=== PATIENT | female | born 1985 | race Caucasian/White ===

== ENCOUNTER 2017-06-09 15:41 | Emergency (ER) | payer MEDICAID, OTHER ==
[2017-06-09 16:39] VITALS: BMI 19.5
[2017-06-09 16:42] VITALS: RESP 18
[2017-06-09] MEDS ORDERED: Sodium Chloride 0.9% 1,000 ML IV STA (18:40)
[2017-06-09 18:53] LABS: BASO # 0.02 K/mm3 (0.0-2.0); BASO % 0.2 % (0.0-3.0); EOS % 0.3 % (1.5-5.0); GRAN # 6.44 (1.4-6.5); GRAN % 69.9 % (50.0-68.0); HEMOGLOBIN 12.5 g/dL (12.0-16.0); LYMPH % 22.1 % (22.0-35.0); MEAN CORPUSCULAR HEMOGLOBIN 29.5 pg (25.0-35.0); MEAN CORPUSCULAR HGB CONC 32.4 g/dl (31.0-37.0); MEAN PLATELET VOLUME 8.7 fl (7.0-11.0); MONO # 0.7 (0.1-0.6); MONO % 7.5 % (1.0-6.0); RBC 4.24 10^6/uL (3.5-6.1); RED CELL DISTRIBUTION WIDTH 15.2 % (11.5-14.5); WHITE BLOOD COUNT 9.2 10^3/ul (4.5-11.0)
[2017-06-09 18:59] LABS: URINE BILIRUBIN NEGATIVE (NEGATIVE); URINE BLOOD TRACE-INTACT (NEGATIVE); URINE GLUCOSE (UA) NEGATIVE (NEGATIVE); URINE LEUKOCYTE ESTERASE SMALL Leu/uL (NEGATIVE); URINE NITRATE NEGATIVE (NEGATIVE); URINE PROTEIN NEGATIVE mg/dL (<30 mg/dL); URINE UROBILINOGEN 0.2 E.U./dL (<1 E.U./dL)
[2017-06-09 19:02] LABS: URINE APPEARANCE CLOUDY (CLEAR); URINE COLOR YELLOW (YELLOW)
[2017-06-09 19:05] LABS: ALB/GLOB RATIO 1.2 (1.1-1.8); ALBUMIN 4.4 g/dL (3.0-4.8); ALT/SGPT 51 U/L (7-56); AMYLASE 113 U/L (35-125); AST/SGOT 31 U/L (14-36); BLOOD UREA NITROGEN 10 mg/dL (7-21); CALCIUM 9.9 mg/dL (8.4-10.5); GFR AFRICAN-AMERICAN > 60; GFR NON-AFRICAN AMERICAN > 60; LIPASE 23 U/L (23-300)
[2017-06-09 19:16] LABS: URINE BACTERIA LARGE (NEG); URINE RBC 0 - 2 /hpf (0-2)
--- NOTE | 2017-06-09 20:04 | CT ---
EXAM: CT Head Without Intravenous Contrast EXAM DATE/TIME: 06/09/2017 6:40 PM CLINICAL HISTORY: The patient age is 31 years old and is female; Pain; Headache; Headache not specified; Additional info: Headache/dizziness Facility exam id and description: Ct heads head w/o contrast TECHNIQUE: Axial computed tomography images of the head/brain without intravenous contrast. All CT scans at this facility use one or more dose reduction techniques, viz.: automated exposure control; ma/kV adjustment per patient size (including targeted exams where dose is matched to indication; i.e. head); or iterative reconstruction technique. Coronal and sagittal reformatted images were created and reviewed. COMPARISON: No relevant prior studies available. FINDINGS: Brain: The white-de la cruz differentiation is preserved demonstrating no acute territorial type infarct. No acute intracranial hemorrhage is seen. Midline shift: There is no midline shift. Ventricles: No ventriculomegaly. Bones/joints: The calvarium demonstrates no evidence for a depressed fracture. Soft tissues: No acute abnormality. Sinuses: Unremarkable as visualized. No acute sinusitis. Mastoid air cells: No mastoid effusion. IMPRESSION: 1. No acute intracranial abnormality.
--- NOTE | 2017-06-09 21:45 | ED PDOC ---
Arrival/HPI - General Historian: Patient - History of Present Illness Time/Duration: Other (3 days) Quality: Throbbing Severity Level: 5 - General Chief Complaint: GI Problem Time Seen by Provider: 06/09/17 18:02 - History of Present Illness Narrative History of Present Illness (Text): 06/09/17 21:43 31-year-old female presents today with dizziness that started 3 days ago. Patient states she ate a dish of seafood and thought that the dizziness was related to that. Patient states the next day she started to feel nauseous and began vomiting. Patient states she developed a headache. patient presents today with nausea and a frontal headache. She denies blurred vision. Patient states she feels dizzy as if the room is spinning. Patient denies chest pain or shortness of breath. She denies abdominal pain. She is complaining of foul- smelling urine and urinary frequency. Patient states she took ibuprofen for pain at home. No other complaints. (Juhi Patel) Past Medical History - Provider Review Nursing Documentation Reviewed: Yes - Travel History Have you recently traveled outside [place] w/in the past 3 mons?: No - Past History Past History: No Previous - Infectious Disease Hx of Infectious Diseases: None - Tetanus Immunization Tetanus Immunization: Unknown - Cardiac Hx Cardiac Disorders: No Hx Hypertension: No - Pulmonary Hx Tuberculosis: No - Neurological HX Cerebrovascular Accident: No Hx Seizures: No - Hematological/Oncological Hx Cancer: No - Musculoskeletal/Rheumatological Hx Falls: No - Gastrointestinal Hx Gastritis: Yes Other/Comment: gastritis - Genitourinary/Gynecological Hx Sexually Transmitted Diseases: No - Psychiatric Hx Depression: No Hx Emotional Abuse: No Hx Physical Abuse: No Hx Substance Use: No - Surgical History Hx Appendectomy: Yes - Anesthesia Hx Anesthesia: Yes Hx Anesthesia Reactions: No - Suicidal Assessment Feels Threatened In Home Enviroment: No Family/Social History - Physician Review Nursing Documentation Reviewed: Yes Family/Social History: Unknown Family HX Smoking Status: Never Smoked Hx Alcohol Use: No Hx Substance Use: No Hx Substance Use Treatment: No Allergies/Home Meds Allergies/Adverse Reactions: Allergies No Known Allergies Allergy (Verified 04/04/16 19:14) Review of Systems - Review of Systems Constitutional: absent: Fatigue, Fevers Eyes: absent: Vision Changes, Photophobia, Eye Pain ENT: absent: Sore Throat, Sinus Congestion Respiratory: absent: SOB, Cough Cardiovascular: absent: Chest Pain, Palpitations Gastrointestinal: Nausea, Vomiting. absent: Abdominal Pain, Diarrhea Genitourinary Female: Frequency, Other (foul smelling urine). absent: Vaginal Bleeding, Vaginal Discharge Musculoskeletal: Back Pain. absent: Arthralgias, Neck Pain Skin: absent: Rash, Pruritis Neurological: Headache, Dizziness Psychiatric: Anxiety, Depression Physical Exam Vital Signs Reviewed: Yes Temperature: Afebrile Blood Pressure: Normal Pulse: Regular Respiratory Rate: Normal Appearance: Positive for: Well-Appearing, Non-Toxic, Comfortable Pain Distress: None Mental Status: Positive for: Alert and Oriented X 3 - Systems Exam Head: Present: Atraumatic Pupils: Present: PERRL Extroacular Muscles: Present: EOMI Conjunctiva: Present: Normal Ears: Present: Normal Mouth: Present: Moist Mucous Membranes Pharnyx: Present: Normal Neck: Present: Normal Range of Motion, Paraspinal Tenderness (+ left sided trapezius tenderness). No: Meningeal Signs, MIDLINE TENDERNESS Respiratory/Chest: Present: Clear to Auscultation, Good Air Exchange. No: Respiratory Distress, Accessory Muscle Use Cardiovascular: Present: Regular Rate and Rhythm, Normal S1, S2. No: Murmurs Abdomen: Present: Normal Bowel Sounds. No: Tenderness, Distention, Peritoneal Signs, Rebound, Guarding Back: Present: Normal Inspection. No: Midline Tenderness, Paraspinal Tenderness Upper Extremity: Present: Normal ROM Lower Extremity: Present: Normal ROM Neurological: Present: GCS=15, Speech Normal, Motor Func Grossly Intact, Normal Sensory Function, Normal Cerebellar Funct, Gait Normal Skin: Present: Warm, Dry, Normal Color. No: Rashes Psychiatric: Present: Alert, Oriented x 3 Vital Signs Temp Pulse Resp BP Pulse Ox 06/09/17 19:39 98.0 F 81 18 102/60 98 06/09/17 16:41 98.3 F 98 H 18 109/70 100 Medical Decision Making ED Course and Treatment: 06/09/17 21:47 31yr old female with dizziness, headache, n/v x 3 days and foul smelling urine. pt given meclizine for dizziness. tylenol for headache. NS iv bolus cbc;wnl cmp; wnl ua; + leukocytes, + bacteria ct head; FINDINGS: Brain: The white-de la cruz differentiation is preserved demonstrating no acute territorial type infarct. No acute intracranial hemorrhage is seen. Midline shift: There is no midline shift. Ventricles: No ventriculomegaly. Bones/joints: The calvarium demonstrates no evidence for a depressed fracture. Soft tissues: No acute abnormality. Sinuses: Unremarkable as visualized. No acute sinusitis. Mastoid air cells: No mastoid effusion. IMPRESSION: 1. No acute intracranial abnormality. pt reassessment; pt feeling better; states dizziness has resolved. pt still c/o frontal headache. toradol given for pain. macrobid started for UTI. 06/09/17 22:32 pt reassessment; Pt feeling much better. denies any complaints. states headache and dizziness has resolved. ambulating with steady gait. i discussed results with patient in depth; advised motrin every 6 hours as needed for pain. advised macrobid twice daily x 10 days. advised increasing fluids and immediate return if symptoms worsen,persist or if new symptoms develop. Patient verbalizes understanding of discharge instructions and need for immediate followup. all aspects of this case were discussed the attending of record. impression; UTI, headache, dizziness motrin every 6 hours as needed for pain macrobid twice daily x 10 days. increase fluids Follow up with the primary care physician within the next 2 days. Return IMMEDIATELY if symptoms worsen,persist or if new concerning symptoms develop. (Juhi Patel) - Lab Interpretations Lab Results: 06/09/17 18:36 06/09/17 18:36 Lab Results 06/09/17 18:36: WBC 9.2 D, RBC 4.24, Hgb 12.5, Hct 38.6, MCV 91.0, MCH 29.5, MCHC 32.4, RDW 15.2 H, Plt Count 397, MPV 8.7, Gran % 69.9 H, Lymph % (Auto) 22.1, [place] % (Auto) 7.5 H, Eos % (Auto) 0.3 L, Baso % (Auto) 0.2, Gran # 6.44, Lymph # 2.0, [place] # 0.7 H, Eos # 0.0, Baso # 0.02 06/09/17 18:36: Sodium 143, Potassium 4.1, Chloride 105, Carbon Dioxide 29, Anion Gap 14, BUN 10, Creatinine 0.7, Est GFR ( Amer) > 60, Est GFR (Non- Af Amer) > 60, Random Glucose 101, Calcium 9.9, Total Bilirubin 0.4, AST 31, ALT 51, Alkaline Phosphatase 102, Total Protein 8.1, Albumin 4.4, Globulin 3.7, Albumin/Globulin Ratio 1.2, Amylase 113, Lipase 23 06/09/17 18:36: Urine Color Yellow, Urine Appearance Cloudy, Urine pH 7.0, Ur Specific [place] 1.010, Urine Protein Negative, Urine Glucose (UA) Negative, Urine Ketones Negative, Urine Blood Trace-intact H, Urine Nitrate Negative, Urine Bilirubin Negative, Urine Urobilinogen 0.2, Ur Leukocyte Esterase Small H , Urine RBC 0 - 2, Urine WBC 5 - 10, Ur Epithelial Cells 6 - 8, Urine Bacteria Large - RAD Interpretation Radiology Orders: 06/09/17 18:40 HEAD W/O CONTRAST [CT] Stat - Medication Orders Current Medication Orders: Discontinued Medications Acetaminophen (Tylenol 325mg Tab) 975 mg PO STAT STA Stop: 06/09/17 20:57 Last Admin: 06/09/17 21:02 Dose: 975 mg MAR Pain/Vitals Document 06/09/17 21:02 CAST (Rec: 06/09/17 21:[id number]) Pain Reassessment Is This A Pain ReAssessment? No Sleep Is patient sleeping during reassessment? No Presence of Pain Presence of Pain Yes Pain Scale Used Pain Scale Used Numeric Location Pain Location Body Radio Communications Mechanician Description Constant Intensity 8 Scale Used Numeric Pain Behavior Facial Grimacing Aggravating Factors Changing Position Alleviating Factors Medication Sodium Chloride (Sodium Chloride 0.9%) 1,000 mls @ 999 mls/hr IV .Q1H1M STA Stop: 06/09/17 19:40 Last Admin: 06/09/17 18:47 Dose: 999 mls/hr eMAR Start Stop Document 06/09/17 18:47 [email or web address] (Rec: 06/09/17 18:47 [facility] [id number]) Intravenous Solution Start Date 06/09/17 Start Time 18:47 End Date 06/09/17 Ketorolac Tromethamine (Toradol) 30 mg IVP STAT STA Stop: 06/09/17 21:39 Last Admin: 06/09/17 21:52 Dose: 30 mg MAR Pain Assessment Document 06/09/17 21:52 [facility]ST (Rec: 06/09/17 21:[id number]) Pain Reassessment Is this a pain reassessment? No Sleep Is patient sleeping during reassessment? No Presence of Pain Presence of Pain Yes Pain Scale Used Pain Scale Used Numeric Location Pain Location Body Radio Communications Mechanician Description Description Constant Intensity of Pain at present 8 Pain Behavior Facial Grimacing Aggravating Factors Changing Position Alleviating Factors/Management Position Change Techniques Alleviating Factors Medication IVP Administration Document 06/09/17 21:52 [facility] (Rec: 06/09/17 21:52 [id number]) Charges for Administration # of IVP Administrations 1 Meclizine HCl (Antivert) 25 mg PO STAT STA Stop: 06/09/17 18:42 Last Admin: 06/09/17 18:47 Dose: 25 mg Nitrofurantoin Macrocrystals (Macrobid) 100 mg PO STAT STA Stop: 06/09/17 21:39 Last Admin: 06/09/17 21:52 Dose: 100 mg Disposition/Present on Arrival - Present on Arrival Any Indicators Present on Arrival: No History of DVT/PE: No History of Uncontrolled Diabetes: No Urinary Catheter: No History of Decub. Ulcer: No History Surgical Site Infection Following: None - Disposition Have Diagnosis and Disposition been Completed?: Yes Disposition Time: 22:35 Patient Plan: Discharge - Disposition Diagnosis: Urinary tract infection, Headache, Dizziness Disposition: HOME/ ROUTINE Condition: GOOD Discharge Instructions (ExitCare): Urinary Tract Infection in Women (ED) Print Language: ROMANIAN Additional Instructions: motrin every 6 hours as needed for pain macrobid twice daily x 10 days. increase fluids Follow up with the primary care physician within the next 2 days. Return IMMEDIATELY if symptoms worsen,persist or if new concerning symptoms develop. Prescriptions: Nitrofurantoin Macrocrystals [Macrobid] 100 mg PO BID #20 cap Referrals: PCP,NO [Primary Care Provider] - Follow up with primary Lester Mcknight DO [Staff Provider] - Follow up with primary Js Ferguson MD [Staff Provider] - Follow up with primary [facility] at [facility] [Outside] - Follow up with primary Forms: [employer] (Maldivian)
[2017-06-09 22:45] VITALS: BP 100/68
[2017-06-09 22:46] VITALS: PULSE 81; TEMP 98.3; O2SAT 99
== END 2017-06-09 22:46 | disposition home or self-care (01) ==
LOC: ED 15:41
DX: N39.0 Urinary tract infection, site not specified (principal); R51 Headache; R42 Dizziness and giddiness
CPT/HCPCS: 70450; 80053; 81001; 82150; 83690; 85025; 87086; 96374; 99284; J1885; J7040

== ENCOUNTER 2017-10-25 16:53 | Emergency (ER) | payer MEDICAID, OTHER ==
[2017-10-25 18:15] VITALS: RESP 18; TEMP 98; BMI 24.2
[2017-10-25] MEDS ORDERED: Sodium Chloride 0.9% 1,000 ML IV STA (18:16)
[2017-10-25 18:42] LABS: URINE BILIRUBIN NEGATIVE (NEGATIVE); URINE BLOOD LARGE (NEGATIVE); URINE GLUCOSE (UA) NEGATIVE (NEGATIVE); URINE LEUKOCYTE ESTERASE TRACE Leu/uL (NEGATIVE); URINE PROTEIN TRACE mg/dL (<30 mg/dL)
[2017-10-25 18:43] LABS: URINE APPEARANCE SLIGHT-CLOUDY (CLEAR); URINE COLOR YELLOW (YELLOW)
[2017-10-25 19:00] LABS: BASO # 0.02 K/mm3 (0.0-2.0); BASO % 0.4 % (0.0-3.0); EOS % 0.7 % (1.5-5.0); GRAN # 3.06 (1.4-6.5); GRAN % 54.1 % (50.0-68.0); HEMOGLOBIN 10.8 g/dL (12.0-16.0); LYMPH # 2.1 (1.2-3.4); LYMPH % 37.2 % (22.0-35.0); MEAN CELL VOLUME 87.8 fl (80.0-105.0); MEAN CORPUSCULAR HEMOGLOBIN 28.7 pg (25.0-35.0); MEAN CORPUSCULAR HGB CONC 32.7 g/dl (31.0-37.0); MEAN PLATELET VOLUME 8.6 fl (7.0-11.0); MONO # 0.4 (0.1-0.6); MONO % 7.6 % (1.0-6.0); RBC 3.76 10^6/uL (3.5-6.1); RED CELL DISTRIBUTION WIDTH 15.6 % (11.5-14.5); WHITE BLOOD COUNT 5.7 10^3/ul (4.5-11.0)
[2017-10-25 19:03] LABS: URINE BACTERIA MANY (NEG)
[2017-10-25 19:20] LABS: ALB/GLOB RATIO 1.2 (1.1-1.8); ALBUMIN 3.7 g/dL (3.0-4.8); ALT/SGPT 37 U/L (7-56); AST/SGOT 35 U/L (14-36); BLOOD UREA NITROGEN 11 mg/dL (7-21); CALCIUM 8.5 mg/dL (8.4-10.5); GFR AFRICAN-AMERICAN > 60; GFR NON-AFRICAN AMERICAN > 60; LIPASE 23 U/L (23-300)
--- NOTE | 2017-10-25 19:23 | ED PDOC ---
Arrival/HPI - General Chief Complaint: Abdominal Pain Time Seen by Provider: 10/25/17 18:16 Historian: Patient - History of Present Illness Narrative History of Present Illness (Text): 10/25/17 21:01 32yr old female presents today with right sided abdominal pain that started yesterday. pt states the pain is constant. pt denies fever/chills. pt c/o nausea. no vomiting. pt c/o back pain. no dizziness or weakness. pt c/o urinary frequency. pt states she is currently menstrating. no cp or sob. no other complaints. Past Medical History - Provider Review Nursing Documentation Reviewed: Yes - Travel History Have you recently traveled outside [place] w/in the past 3 mons?: No - Past History Past History: No Previous - Infectious Disease Hx of Infectious Diseases: None - Tetanus Immunization Tetanus Immunization: Unknown - Cardiac Hx Cardiac Disorders: No - Pulmonary Hx Respiratory Disorders: No - Neurological Hx Neurological Disorder: No - HEENT Hx HEENT Disorder: No - Renal Hx Renal Disorder: No - Endocrine/Metabolic Hx Endocrine Disorders: No - Hematological/Oncological Hx Blood Disorders: No - Integumentary Hx Dermatological Disorder: No - Musculoskeletal/Rheumatological Hx Musculoskeletal Disorders: No - Gastrointestinal Hx Gastritis: Yes Other/Comment: gastritis - Genitourinary/Gynecological Hx Genitourinary Disorders: No - Psychiatric Hx Psychophysiologic Disorder: No Hx Substance Use: No - Surgical History Hx Appendectomy: Yes - Anesthesia Hx Anesthesia: Yes Hx Anesthesia Reactions: No - Suicidal Assessment Feels Threatened In Home Enviroment: No Family/Social History - Physician Review Nursing Documentation Reviewed: Yes Family/Social History: Unknown Family HX Smoking Status: Never Smoked Hx Alcohol Use: No Hx Substance Use: No Hx Substance Use Treatment: No Allergies/Home Meds Allergies/Adverse Reactions: Allergies No Known Allergies Allergy (Verified 10/25/17 18:09) Review of Systems - Review of Systems Constitutional: absent: Fatigue, Fevers Respiratory: absent: SOB, Cough Cardiovascular: absent: Chest Pain, Palpitations Gastrointestinal: Abdominal Pain, Diarrhea, Nausea. absent: Constipation, Vomiting Genitourinary Female: Frequency. absent: Dysuria, Hematuria, Vaginal Discharge Musculoskeletal: Back Pain. absent: Arthralgias, Neck Pain Skin: absent: Rash, Pruritis Neurological: absent: Headache, Dizziness Psychiatric: absent: Anxiety, Depression, Suicidal Ideation Physical Exam Vital Signs Reviewed: Yes Vital Signs Temp Pulse Resp BP Pulse Ox 10/25/17 23:30 80 18 127/74 100 10/25/17 22:00 76 18 123/71 98 10/25/17 20:00 82 18 125/70 100 10/25/17 18:12 98 F 98 H 18 122/73 99 Temperature: Afebrile Blood Pressure: Normal Pulse: Regular Respiratory Rate: Normal Appearance: Positive for: Well-Appearing, Non-Toxic, Comfortable Pain Distress: None Mental Status: Positive for: Alert and Oriented X 3 - Systems Exam Head: Present: Atraumatic Mouth: Present: Moist Mucous Membranes Neck: Present: Normal Range of Motion Respiratory/Chest: Present: Clear to Auscultation, Good Air Exchange. No: Respiratory Distress, Accessory Muscle Use Cardiovascular: Present: Regular Rate and Rhythm, Normal S1, S2. No: Murmurs Abdomen: Present: Tenderness (+ ruq and rlq and suprapubic tenderness). No: Distention, Peritoneal Signs Rectal: Present: Normal Rectal Tone. No: Occult Blood, Rectal Tenderness, Gross Blood, Melena, Hemorrhoids, Fissures Back: Present: Normal Inspection. No: CVA Tenderness, Midline Tenderness, Paraspinal Tenderness Upper Extremity: Present: Normal ROM Lower Extremity: Present: Normal ROM Neurological: Present: GCS=15, Speech Normal Skin: Present: Warm, Dry, Normal Color. No: Rashes Psychiatric: Present: Alert, Oriented x 3 Medical Decision Making ED Course and Treatment: 10/25/17 21:16 Patient is nontoxic well appearing with stable vital signs presenting with abdominal pain, nausea since yesterday CBC wnl CMP wnl Lipase wnl Urinalysis + blood, + leukocytes CAT scan:FINDINGS: LIMITATIONS: Mild streak/motion artifact. LUNG BASES: No significant abnormality seen. ABDOMEN: LIVER: Area of low density in the liver, abutting the falciform ligament, most compatible with focal fatty infiltration. GALLBLADDER AND BILE DUCTS: No CT evidence of acute cholecystitis. No evidence of significant biliary ductal dilatation. PANCREAS: No CT evidence of acute pancreatitis. SPLEEN: No acute abnormality of the spleen identified. ADRENALS: No acute abnormality of the adrenal glands identified. KIDNEYS AND URETERS: No acute abnormality of the kidneys identified. No evidence of significant hydrouereteronephrosis. STOMACH AND BOWEL:No acute abnormality of the stomach, small bowel or colon identified. No evidence of bowel obstruction. No evidence of diverticulitis. No evidence of diffuse colitis/pancolitis. PELVIS: APPENDIX: Normal appendix is not seen, however, there are no significant inflammatory changes visualized in the expected location of the appendix to suggest appendicitis. Recommend clinical correlation. BLADDER: No acute abnormality of the bladder identified. REPRODUCTIVE: Abnormal stranding of the fat in the anterior pelvis, suspicious for inflammation. This partially abuts the adnexae bilaterally, and could be secondary to pelvic inflammatory disease. There is a small amount of fluid in the adnexal regions bilaterally. No acute abnormality of the uterus identified. No evidence of large cystic adnexal masses. ABDOMEN and PELVIS: INTRAPERITONEAL SPACE: See above. No evidence of free intraperitoneal air. BONES/JOINTS: No acute fractures or other acute bony abnormality noted. SOFT TISSUES: No acute abnormality of the visualized soft tissues is seen. VASCULATURE: No evidence of abdominal aortic aneurysm. No evidence of periaortic hemorrhage. LYMPH NODES: No evidence of diffuse lymphadenopathy. IMPRESSION: - Findings suspicious for inflammation in the anterior pelvis. This could be secondary to pelvic inflammatory disease. There is no evidence of large cystic adnexal masses. - Otherwise, no evidence of significant acute process. Appendix is not seen, however. - See above for remaining findings. Patient reassessment:pt is non toxic well appearing; no distress. PID concern on ct of abd/pelvis; will treat with rocephin 250mg IM, and d/c home doxycycline 100mg bid and flagyl 500mg bid x 14 days. Discussed all results with patient in depth; stressed the importance of f/u with [facility] within the next 2 days. advised immediate return if symptoms worsen, persist or if new symptoms develop. Patient verbalizes understanding of discharge instructions and need for immediate followup. Patient seen and Evaluated by Dr. montelongo Impression: Abdominal pain, PID, UTI Motrin every 6 hours as needed for pain doxycycline; twice daily x 14 days Flagyl one tablet twice daily x14 days Follow up with the [facility] within the next 2 days. Follow up with primary care physician within the next 2 days Return immediately if symptoms worsen persist or if new symptoms develop: High fevers, increasing pain, vomiting, diarrhea or any other concerning symptoms develop - Lab Interpretations Lab Results: 10/25/17 18:53 10/25/17 18:53 Lab Results 10/25/17 18:53: Beta HCG, Quant < 2.39 10/25/17 18:53: WBC 5.7 D, RBC 3.76, Hgb 10.8 L, Hct 33.0 L, MCV 87.8 D, MCH 28.7, MCHC 32.7, RDW 15.6 H, Plt Count 310, MPV 8.6, Gran % 54.1, Lymph % (Auto ) 37.2 H, [place] % (Auto) 7.6 H, Eos % (Auto) 0.7 L, Baso % (Auto) 0.4, Gran # 3.06, Lymph # (Auto) 2.1, [place] # (Auto) 0.4, Eos # (Auto) 0.0, Baso # (Auto) 0.02 10/25/17 18:53: Sodium 148, Potassium 3.7, Chloride 111 H, Carbon Dioxide 25, Anion Gap 16, BUN 11, Creatinine 0.7, Est GFR ( Amer) > 60, Est GFR (Non- Af Amer) > 60, Random Glucose 118 H, Calcium 8.5, Total Bilirubin 0.4, AST 35, ALT 37, Alkaline Phosphatase 64, Total Protein 6.9, Albumin 3.7, Globulin 3.2, Albumin/Globulin Ratio 1.2, Lipase 23 10/25/17 18:31: Urine Color Yellow, Urine Appearance Slight-cloudy, Urine pH 6.0 , Ur Specific [place] 1.025, Urine Protein Trace H, Urine Glucose (UA) Negative , Urine Ketones Trace H, Urine Blood Large H, Urine Nitrate Positive H, Urine Bilirubin Negative, Urine Urobilinogen 1.0 H, Ur Leukocyte Esterase Trace H, Urine RBC 10 - 15, Urine WBC 2 - 5, Ur Epithelial Cells 10 - 12, Urine Bacteria Many - RAD Interpretation Radiology Orders: 10/25/17 19:38 ABD & PELVIS IV CONTRAST ONLY [CT] Stat - Medication Orders Current Medication Orders: Discontinued Medications Ceftriaxone Sodium (Rocephin) 250 mg IM STAT STA PRN Reason: Protocol Stop: 10/25/17 22:20 Last Admin: 10/25/17 22:55 Dose: 250 mg IM Administration Charges Document 10/25/17 22:55 [facility] (Rec: 10/25/17 22:55 [facility] [id number]) Injection Site MAR Injection Site Left Gluteus [place] Charges for Administration # of IM Administrations 1 Doxycycline Hyclate (Doryx) 100 mg PO STAT STA PRN Reason: Protocol Stop: 10/25/17 22:20 Last Admin: 10/25/17 22:53 Dose: 100 mg Famotidine (Pepcid) 20 mg IVP STAT STA Stop: 10/25/17 18:17 Last Admin: 10/25/17 18:51 Dose: 20 mg IVP Administration Document 10/25/17 18:51 [facility] (Rec: 10/25/17 18:51 [facility] [id number]) Charges for Administration # of IVP Administrations 1 Sodium Chloride (Sodium Chloride 0.9%) 1,000 mls @ 999 mls/hr IV .Q1H1M STA Stop: 10/25/17 19:16 Last Admin: 10/25/17 18:51 Dose: 999 mls/hr eMAR Start Stop Document 10/25/17 18:51 [facility] (Rec: 10/25/17 18:51 [facility] [id number]) Intravenous Solution Start Date 10/25/17 Start Time 18:51 End Date 10/25/17 End time 19:52 Total Infusion Time 61 Ketorolac Tromethamine (Toradol) 30 mg IVP STAT STA Stop: 10/25/17 19:40 Last Admin: 10/25/17 20:22 Dose: 30 mg MAR Pain Assessment Document 10/25/17 20:22 [facility] (Rec: 10/25/17 20:23 [facility] [id number]) Pain Reassessment Is this a pain reassessment? No Sleep Is patient sleeping during reassessment? No Presence of Pain Presence of Pain Yes Pain Scale Used Pain Scale Used Numeric Location Left, Right or Bilateral Right Upper or Lower Upper Pain Location Body Site Abdomen Description Intensity of Pain at present 6 IVP Administration Document 10/25/17 20:22 [facility] (Rec: 10/25/17 20:23 [facility] [id number]) Charges for Administration # of IVP Administrations 1 Metronidazole (Flagyl) 500 mg PO STAT STA PRN Reason: Protocol Stop: 10/25/17 22:20 Last Admin: 10/25/17 22:55 Dose: 500 mg Disposition/Present on Arrival - Present on Arrival Any Indicators Present on Arrival: No History of DVT/PE: No History of Uncontrolled Diabetes: No Urinary Catheter: No History of Decub. Ulcer: No History Surgical Site Infection Following: None - Disposition Have Diagnosis and Disposition been Completed?: Yes Diagnosis: Abdominal pain, PID (pelvic inflammatory disease), Urinary tract infection Disposition: HOME/ ROUTINE Disposition Time: 22:54 Patient Plan: Discharge Condition: GOOD Discharge Instructions (ExitCare): Pelvic Inflammatory Disease, Acute Abdomen ( Belly Pain), Adult (DC) Print Language: KIS[place]ILI Additional Instructions: Motrin every 6 hours as needed for pain doxycycline; twice daily x 14 days Flagyl one tablet twice daily x14 days Follow up with the [facility] within the next 2 days. Follow up with primary care physician within the next 2 days Return immediately if symptoms worsen persist or if new symptoms develop: High fevers, increasing pain, vomiting, diarrhea or any other concerning symptoms develop Prescriptions: Doxycycline Hyclate 100 mg PO BID #28 capsule Ibuprofen [Motrin] 600 mg PO Q6H PRN #20 tab PRN Reason: pain/fever reduction metroNIDAZOLE [Flagyl] 500 mg PO BID #28 tab Referrals: [facility] at [facility] [Outside] - [facility] [[facility]] - Follow up with primary Perez Shah MD [Staff Provider] - Follow up with primary Tommie Reyes MD [Staff Provider] - Follow up with primary Forms: [employer] (Uzbek), WORK NOTE
[2017-10-25] MEDS ORDERED: Iohexol 350 MG/100 ML VIAL ONE (19:50)
--- NOTE | 2017-10-25 21:59 | CT ---
EXAM: CT Abdomen and Pelvis With Intravenous Contrast EXAM DATE/TIME: 10/25/2017 7:38 PM CLINICAL HISTORY: 32 years old, female; Pain; Abdominal pain; Acute; Additional info: Abd pain TECHNIQUE: Axial computed tomography images of the abdomen and pelvis with intravenous contrast. All CT scans at this facility use one or more dose reduction techniques, viz.: automated exposure control; ma/kV adjustment per patient size (including targeted exams where dose is matched to indication; i.e. head); or iterative reconstruction technique. Coronal and sagittal reformatted images were created and reviewed. CONTRAST: 100 mL of OMNI 350 administered intravenously. COMPARISON: Prior CT abdomen and pelvis of 2016-04-04 FINDINGS: LIMITATIONS: Mild streak/motion artifact. LUNG BASES: No significant abnormality seen. ABDOMEN: LIVER: Area of low density in the liver, abutting the falciform ligament, most compatible with focal fatty infiltration. GALLBLADDER AND BILE DUCTS: No CT evidence of acute cholecystitis. No evidence of significant biliary ductal dilatation. PANCREAS: No CT evidence of acute pancreatitis. SPLEEN: No acute abnormality of the spleen identified. ADRENALS: No acute abnormality of the adrenal glands identified. KIDNEYS AND URETERS: No acute abnormality of the kidneys identified. No evidence of significant hydrouereteronephrosis. STOMACH AND BOWEL:No acute abnormality of the stomach, small bowel or colon identified. No evidence of bowel obstruction. No evidence of diverticulitis. No evidence of diffuse colitis/pancolitis. PELVIS: APPENDIX: Normal appendix is not seen, however, there are no significant inflammatory changes visualized in the expected location of the appendix to suggest appendicitis. Recommend clinical correlation. BLADDER: No acute abnormality of the bladder identified. REPRODUCTIVE: Abnormal stranding of the fat in the anterior pelvis, suspicious for inflammation. This partially abuts the adnexae bilaterally, and could be secondary to pelvic inflammatory disease. There is a small amount of fluid in the adnexal regions bilaterally. No acute abnormality of the uterus identified. No evidence of large cystic adnexal masses. ABDOMEN and PELVIS: INTRAPERITONEAL SPACE: See above. No evidence of free intraperitoneal air. BONES/JOINTS: No acute fractures or other acute bony abnormality noted. SOFT TISSUES: No acute abnormality of the visualized soft tissues is seen. VASCULATURE: No evidence of abdominal aortic aneurysm. No evidence of periaortic hemorrhage. LYMPH NODES: No evidence of diffuse lymphadenopathy. IMPRESSION: - Findings suspicious for inflammation in the anterior pelvis. This could be secondary to pelvic inflammatory disease. There is no evidence of large cystic adnexal masses. - Otherwise, no evidence of significant acute process. Appendix is not seen, however. - See above for remaining findings.
[2017-10-25] MEDS ORDERED: cefTRIAXone (Rocephin) 250 mg Inj IM STA (22:19)
[2017-10-25 23:43] VITALS: BP 127/74; PULSE 80; O2SAT 100
== END 2017-10-25 23:30 | disposition home or self-care (01) ==
LOC: ED 16:53
DX: N39.0 Urinary tract infection, site not specified (principal); N73.9 Female pelvic inflammatory disease, unspecified; R10.9 Unspecified abdominal pain
CPT/HCPCS: 74177; 80053; 81001; 83690; 84702; 85025; 87086; 87491; 87591; 96361; 96372; 96374; 96375; 99284; J0696; J1885; J7040; Q9967

== ENCOUNTER 2017-10-28 17:59 | Inpatient (IN) | payer MEDICAID ==
--- NOTE | 2017-10-28 18:07 | ED PDOC ---
Arrival/HPI - General Time Seen by Provider: 10/28/17 18:06 Historian: Patient - History of Present Illness Narrative History of Present Illness (Text): 10/28/17 18:06 32 y/o female, pmh including UTI/PID?, nkda, return back to the ER as she has not been feeling better. Pt. stated that she has been feeling fatigue and tired , seen in the ER about 3 days ago and been on the oral antibiotics, urine culture show not sensitive to the oral antibiotic but sensitive to IV antibiotics including meropenem, no fever but she's been feeling fatigue, admits rt. flank pain, no chest pain or shortness of breath, no other medical or psychological complaints. Past Medical History - Provider Review Nursing Documentation Reviewed: Yes - Past History Past History: No Previous - Infectious Disease Hx of Infectious Diseases: None - Tetanus Immunization Tetanus Immunization: Unknown - Cardiac Hx Cardiac Disorders: No - Pulmonary Hx Respiratory Disorders: No - Neurological Hx Neurological Disorder: No - HEENT Hx HEENT Disorder: No - Renal Hx Renal Disorder: No - Endocrine/Metabolic Hx Endocrine Disorders: No - Hematological/Oncological Hx Blood Disorders: No - Integumentary Hx Dermatological Disorder: No - Musculoskeletal/Rheumatological Hx Musculoskeletal Disorders: No - Gastrointestinal Hx Gastritis: Yes Other/Comment: gastritis - Genitourinary/Gynecological Hx Genitourinary Disorders: No - Psychiatric Hx Psychophysiologic Disorder: No Hx Substance Use: No - Surgical History Hx Appendectomy: Yes - Anesthesia Hx Anesthesia: Yes Hx Anesthesia Reactions: No - Suicidal Assessment Feels Threatened In Home Enviroment: No Family/Social History - Physician Review Nursing Documentation Reviewed: Yes Family/Social History: Unknown Family HX Smoking Status: Never Smoked Hx Alcohol Use: No Hx Substance Use: No Hx Substance Use Treatment: No Allergies/Home Meds Allergies/Adverse Reactions: Allergies No Known Allergies Allergy (Verified 10/25/17 18:09) Review of Systems - Review of Systems Constitutional: Fatigue. absent: Fevers Eyes: absent: Vision Changes ENT: absent: Hearing Changes Respiratory: absent: SOB, Cough Cardiovascular: absent: Chest Pain Gastrointestinal: absent: Abdominal Pain, Nausea, Vomiting Skin: Rash. absent: Pruritis, Skin Lesions Neurological: absent: Headache, Dizziness Psychiatric: absent: Anxiety, Depression Physical Exam Vital Signs Reviewed: Yes Vital Signs Temp Pulse Pulse Resp BP Pulse Ox 05/23/18 22:10 98.9 F 82 82 18 108/71 10/28/17 18:18 98.9 F 82 18 108/71 100 Temperature: Afebrile Blood Pressure: Normal Pulse: Regular Respiratory Rate: Normal Appearance: Positive for: Well-Appearing, Non-Toxic, Comfortable Pain Distress: None Mental Status: Positive for: Alert and Oriented X 3 - Systems Exam Head: Present: Atraumatic, Normocephalic Pupils: Present: PERRL Extroacular Muscles: Present: EOMI Conjunctiva: Present: Normal Mouth: Present: Moist Mucous Membranes Neck: Present: Normal Range of Motion Respiratory/Chest: Present: Clear to Auscultation, Good Air Exchange. No: Respiratory Distress, Accessory Muscle Use Cardiovascular: Present: Regular Rate and Rhythm, Normal S1, S2. No: Murmurs Abdomen: Present: Tenderness (Rt. cva). No: Distention, Peritoneal Signs, Rebound, Guarding Back: Present: Normal Inspection. No: Midline Tenderness, Paraspinal Tenderness Upper Extremity: Present: Normal Inspection. No: Cyanosis, Edema Lower Extremity: Present: Normal Inspection. No: Edema Neurological: Present: GCS=15, CN II-XII Intact, Speech Normal, Motor Func Grossly Intact Skin: Present: Warm, Dry, Normal Color. No: Rashes Psychiatric: Present: Alert, Oriented x 3, Normal Insight, Normal Concentration Medical Decision Making ED Course and Treatment: 10/28/17 18:46 -labs/ua/urine and blood culture/vbg -Chest xray -IV Meropenem -Observe and reassess 10/28/17 20:55 -Chest xray show no active disease -Labs show no acute findings -UA show +UTI which shes failure of the outpatient treatment and the urine culture is only sensitive to the IV antibiotic. -I discussed with the patient and Dr. Walsh, both agreed to be admitted at this time as she is symptomatic with rt. flank pain -Paging the night house doctor for admission. 10/28/17 21:02 -I spoke to the medical writer and Dr. Reyna, discussed about the labs/ radiology results and treatment, agreed to admit to the hospitalist service and agreed on the admission to continue the care. -Dr. Walsh will placed the admission. - Lab Interpretations Lab Results: 10/28/17 19:10 10/28/17 19:10 Lab Results 10/28/17 19:10: Urine Color Yellow, Urine Appearance Sl cloudy, Urine pH 6.0, Ur Specific [place] 1.025, Urine Protein Trace H, Urine Glucose (UA) Negative, Urine Ketones Negative, Urine Blood Trace-lysed H, Urine Nitrate Negative, Urine Bilirubin Negative, Urine Urobilinogen 0.2, Ur Leukocyte Esterase Small H , Urine RBC 0 - 2, Urine WBC 2 - 5, Ur Epithelial Cells 10 - 12, Urine Bacteria Few, Urine HCG, Qual Negative 10/28/17 19:10: Sodium 143, Potassium 3.4 L, Chloride 108 H, Carbon Dioxide 24, Anion Gap 14, BUN 11, Creatinine 0.6 L, Est GFR ( Amer) > 60, Est GFR ( Non-Af Amer) > 60, Random Glucose 107, Calcium 9.3, Magnesium 2.0, Total Bilirubin 0.2, AST 65 H D, ALT 68 H, Alkaline Phosphatase 82, Total Protein 7.0 , Albumin 3.9, Globulin 3.2, Albumin/Globulin Ratio 1.2 10/28/17 19:10: WBC 5.3, RBC 3.77, Hgb 10.9 L, Hct 33.2 L, MCV 88.1, MCH 28.9, MCHC 32.8, RDW 15.5 H, Plt Count 321, MPV 8.7, Gran % 41.2 L, Lymph % (Auto) 44.3 H, [place] % (Auto) 12.2 H, Eos % (Auto) 1.9, Baso % (Auto) 0.4, Gran # 2.20, Lymph # (Auto) 2.4, [place] # (Auto) 0.7 H, Eos # (Auto) 0.1, Baso # (Auto) 0.02 I have reviewed the lab results: Yes - RAD Interpretation Radiology Orders: 10/28/17 18:38 CHEST PORTABLE [RAD] Stat no active disease Development Analyst: Radiologist - Medication Orders Current Medication Orders: Acetaminophen (Tylenol 325mg Tab) 650 mg PO Q6H PRN PRN Reason: Fever >100.4 F Heparin Sodium (Porcine) (Heparin) 5,000 units SC Q8 JOHN PRN Reason: Protocol Sodium Chloride (Sodium Chloride 0.9%) 1,000 mls @ 100 mls/hr IV .Q10H JOHN Last Admin: 10/29/17 13:35 Dose: 100 mls/hr eMAR Start Stop Document 10/29/17 13:35 [facility] (Rec: 10/29/17 13:36 [id number]) Intravenous Solution Start Date 10/29/17 Start Time 13:36 Meropenem (Merrem Iv 1 Gm Premix) 50 mls @ 100 mls/hr IVPB Q8 JOHN Stop: 10/29/17 14:29 Last Admin: 10/29/17 13:34 Dose: 100 mls/hr eMAR Start Stop Document 10/29/17 13:34 [facility] (Rec: 10/29/17 13:34 [id number]) Intravenous Solution Start Date 10/29/17 Start Time 13:34 End Date 10/29/17 End time 14:34 Total Infusion Time 60 Ibuprofen (Motrin Tab) 600 mg PO Q6 PRN PRN Reason: NASAL CONGESTION Last Admin: 10/28/17 23:10 Dose: 600 mg MAR Pain/Vitals Document 10/28/17 23:10 CLINICAL PHARMACOLOGIST (Rec: 10/28/17 23:10 [id number]) Location Pain Location Body Site headache Re-Assess: MAR Pain/Vitals Document 10/29/17 00:10 CLINICAL PHARMACOLOGIST (Rec: 10/29/17 05:51 [id number]) Pain Reassessment Is This A Pain ReAssessment? Yes Sleep Is patient sleeping during reassessment? Yes Lactobacillus Acidophilus (Bacid Acidophilus) 1 cap PO BID [facility] Ondansetron HCl (Zofran Inj) 4 mg IVP Q4H PRN PRN Reason: Nausea/Vomiting Discontinued Medications Meropenem (Merrem Iv 1 Gm Premix) 50 mls @ 100 mls/hr IVPB STAT JOHN PRN Reason: Protocol Last Admin: 10/28/17 19:38 Dose: 100 mls/hr eMAR Start Stop Document 10/28/17 19:38 MS (Rec: 10/28/17 19:39 [id number]) Intravenous Solution Start Date 10/28/17 Start Time 19:39 End Date 10/28/17 End time 20:09 Total Infusion Time 30 Meropenem 1,000 mg/ Sodium (Chloride) 50 mls @ 100 mls/hr IVPB Q8 JOHN PRN Reason: Protocol Stop: 10/29/17 06:29 Meropenem (Merrem Iv 1 Gm Premix) 50 mls @ 100 mls/hr IVPB Q8 JOHN Pantoprazole Sodium (Protonix Ec Tab) 40 mg PO 0600 JOHN Last Admin: 10/29/17 05:51 Dose: 40 mg Pneumococcal Polyvalent Vaccine (Pneumovax 23 Vaccine) 0.5 ml IM .ONCE ONE Stop: 10/28/17 22:22 Potassium Chloride (K-Dur 20 Meq Er Tab) 20 meq PO STAT STA Stop: 10/28/17 20:55 Last Admin: 10/28/17 22:00 Dose: 20 meq - PA / [employer] FORMER / Resident Statement / has reviewed & agrees with the documentation as recorded. Disposition/Present on Arrival - Present on Arrival Any Indicators Present on Arrival: No History of DVT/PE: No History of Uncontrolled Diabetes: No Urinary Catheter: No History of Decub. Ulcer: No History Surgical Site Infection Following: None - Disposition Have Diagnosis and Disposition been Completed?: Yes Diagnosis: Pyelonephritis, Failure of outpatient treatment, Fatigue Disposition: HOSPITALIZED Disposition Time: 18:46 Patient Plan: Admission Patient Problems: Current Active Problems Problem Status Onset Failure of outpatient treatment Acute Fatigue Acute Pyelonephritis Acute UTI due to extended-spectrum beta lactamase (ESBL) producing Escherichia coli Acute Condition: STABLE
[2017-10-28] MEDS ORDERED: Meropenem IV 1 gm in NS 50 ML IVPB SCH ×2 (18:45→22:00)
[2017-10-28 19:24] LABS: BASO # 0.02 K/mm3 (0.0-2.0); BASO % 0.4 % (0.0-3.0); EOS # 0.1 (0.0-0.7); EOS % 1.9 % (1.5-5.0); GRAN # 2.2 (1.4-6.5); GRAN % 41.2 % (50.0-68.0); HEMOGLOBIN 10.9 g/dL (12.0-16.0); LYMPH # 2.4 (1.2-3.4); LYMPH % 44.3 % (22.0-35.0); MEAN CELL VOLUME 88.1 fl (80.0-105.0); MEAN CORPUSCULAR HEMOGLOBIN 28.9 pg (25.0-35.0); MEAN CORPUSCULAR HGB CONC 32.8 g/dl (31.0-37.0); MEAN PLATELET VOLUME 8.7 fl (7.0-11.0); MONO # 0.7 (0.1-0.6); MONO % 12.2 % (1.0-6.0); RBC 3.77 10^6/uL (3.5-6.1); RED CELL DISTRIBUTION WIDTH 15.5 % (11.5-14.5); URINE APPEARANCE SL CLOUDY (CLEAR); URINE BILIRUBIN NEGATIVE (NEGATIVE); URINE BLOOD TRACE-LYSED (NEGATIVE); URINE COLOR YELLOW (YELLOW); URINE GLUCOSE (UA) NEGATIVE (NEGATIVE); URINE LEUKOCYTE ESTERASE SMALL Leu/uL (NEGATIVE); URINE PROTEIN TRACE mg/dL (<30 mg/dL); URINE UROBILINOGEN 0.2 E.U./dL (<1 E.U./dL); WHITE BLOOD COUNT 5.3 10^3/ul (4.5-11.0)
[2017-10-28 19:28] LABS: HCG,QUALITATIVE URINE NEGATIVE (NEGATIVE); URINE BACTERIA FEW (NEG); URINE RBC 0 - 2 /hpf (0-2)
[2017-10-28 19:50] LABS: ALB/GLOB RATIO 1.2 (1.1-1.8); ALBUMIN 3.9 g/dL (3.0-4.8); ALT/SGPT 68 U/L (7-56); AST/SGOT 65 U/L (14-36); BLOOD UREA NITROGEN 11 mg/dL (7-21); CALCIUM 9.3 mg/dL (8.4-10.5); GFR AFRICAN-AMERICAN > 60; GFR NON-AFRICAN AMERICAN > 60
[2017-10-28] MEDS ORDERED: Potassium Chloride 20 mEq ER Tab PO STA (20:54)
--- NOTE | 2017-10-28 21:54 | CP.PCM.HP ---
History of Present Illness - History of Present Illness History of Present Illness: Mrs. Alek Charles is a 32 year old female with a past medical history significant for GERD and recurrent UTI's who presents for failed outpatient treatment of UTI with PO Doxycycline and Flagyl. Patient speaks primarily gibraltarian and translation was provided by [employer]. Patient presented to the ED three days [employer] with complaints of RUQ/right sided flank pain for two days. She was diagnosed with UTI and sent home on the antiobiotics above. She came back to the ED tonight because her pain was not going away with antiobiotic treatment. It was confirmed that her UTI was caused by E. Coli sensitive to antibiotics that are primarily given IV. She reports that she has UTI's "all the time", most recently two months ago. She was vacationing in [facility] and was seen at the hospital there. She was diagnosed with UTI and was given antibiotics based on culture sensitivity. Patient could not recall the name of this antibiotic but reports that her symptoms were relieved however. She endorses one episode of N/V but denies fevers, chills, headache, chest pain, SOB , diarrhea, constipation, dysuria, hematuria, pyuria, vaginal discharge, skin changes/lesions, numbness/tingling/weakness of any extremity, or any new sexual partners. 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 Allergies: NKDA Home Medications: Denies LMP: 10/23/17 Present on Admission - Present on Admission Any Indicators Present on Admission: No Review of Systems - Review of Systems Review of Systems: As stated in HPI, otherwise negative Past Patient History - Infectious Disease Hx of Infectious Diseases: None - Tetanus Immunizations Tetanus Immunization: Unknown - Past Social History Smoking Status: Never Smoked - CARDIAC Hx Cardiac Disorders: No - PULMONARY Hx Respiratory Disorders: No - NEUROLOGICAL Hx Neurological Disorder: No - HEENT Hx HEENT Problems: No - RENAL Hx Chronic Kidney Disease: No - ENDOCRINE/METABOLIC Hx Endocrine Disorders: No - HEMATOLOGICAL/ONCOLOGICAL Hx Blood Disorders: No - INTEGUMENTARY Hx Dermatological Problems: No - MUSCULOSKELETAL/RHEUMATOLOGICAL Hx Musculoskeletal Disorders: No - GASTROINTESTINAL Hx Gastritis: Yes Other/Comment: gastritis - GENITOURINARY/GYNECOLOGICAL Hx Genitourinary Disorders: No - PSYCHIATRIC Hx Psychophysiologic Disorder: No Hx Substance Use: No - SURGICAL HISTORY Hx Appendectomy: Yes - ANESTHESIA Hx Anesthesia: Yes Hx Anesthesia Reactions: No Meds Allergies/Adverse Reactions: Allergies Allergy/AdvReac Type Severity Reaction Status Date / Time No Known Allergies Allergy Verified 10/25/17 18:09 Physical Exam - Constitutional Appears: Non-toxic, No Acute Distress - Head Exam Head Exam: ATRAUMATIC, NORMOCEPHALIC - Eye Exam Eye Exam: EOMI, Normal appearance - Neck Exam Neck exam: Positive for: Full Rom, Normal Inspection. Negative for: Lymphadenopathy - Respiratory Exam Respiratory Exam: Clear to Auscultation Bilateral, NORMAL BREATHING PATTERN. absent: Accessory Muscle Use, Chest Wall Tenderness, Decreased Breath Sounds, Prolonged Expiratory Phase, Rales, Rhonchi, Wheezes, Respiratory Distress, Stridor - Cardiovascular Exam Cardiovascular Exam: REGULAR RHYTHM, RRR, +S1, +S2. absent: Bradycardia, Tachycardia, Clicks, Diastolic murmur, Gallop, Irregular Rhythm, JVD, Rubs, +S4 , Systolic Murmur - GI/Abdominal Exam GI & Abdominal Exam: Normal Bowel Sounds, Soft. absent: Bruit, Diminished Bowel Sounds, Distended, Firm, Guarding, Hernia, Hyperactive Bowel Sounds, Hypoactive Bowel Sounds, Mass, Organomegaly, Pulsatile Mass, Rebound, Rigid, Tenderness - Extremities Exam Extremities exam: Positive for: full ROM, normal capillary refill, normal inspection, pedal pulses present. Negative for: calf tenderness, joint swelling , pedal edema, tenderness - Back Exam Back exam: FULL ROM, NORMAL INSPECTION. absent: CVA tenderness (L), CVA tenderness (R), muscle spasm, paraspinal tenderness, rash noted, tenderness, vertebral tenderness - Neurological Exam Neurological exam: Alert, Normal Gait, Oriented x3 - Psychiatric Exam Psychiatric exam: Normal Affect, Normal Mood - Skin Skin Exam: Dry, Intact, Normal Color, Warm Results - Vital Signs Recent Vital Signs: Last Vital Signs Temp 98.9 F 10/28/17 18:18 Pulse 82 10/28/17 18:18 Resp 18 10/28/17 18:18 BP 108/71 10/28/17 18:18 Pulse Ox 100 10/28/17 18:18 - Labs Result Diagrams: 10/28/17 19:10 05/23/18 19:10 Labs: Laboratory Results - last 24 hr 10/28/17 10/28/17 10/28/17 19:10 19:10 19:10 WBC 5.3 RBC 3.77 Hgb 10.9 L Hct 33.2 L MCV 88.1 MCH 28.9 MCHC 32.8 RDW 15.5 H Plt Count 321 MPV 8.7 Gran % 41.2 L Lymph % (Auto) 44.3 H [place] % (Auto) 12.2 H Eos % (Auto) 1.9 Baso % (Auto) 0.4 Gran # 2.20 Lymph # (Auto) 2.4 [place] # (Auto) 0.7 H Eos # (Auto) 0.1 Baso # (Auto) 0.02 Sodium 143 Potassium 3.4 L Chloride 108 H Carbon Dioxide 24 Anion Gap 14 BUN 11 Creatinine 0.6 L Est GFR ( Amer) > 60 Est GFR (Non-Af Amer) > 60 Random Glucose 107 Calcium 9.3 Magnesium 2.0 Total Bilirubin 0.2 AST 65 H D ALT 68 H Alkaline Phosphatase 82 Total Protein 7.0 Albumin 3.9 Globulin 3.2 Albumin/Globulin Ratio 1.2 Urine Color Yellow Urine Appearance Sl cloudy Urine pH 6.0 Ur Specific [place] 1.025 Urine Protein Trace H Urine Glucose (UA) Negative Urine Ketones Negative Urine Blood Trace-lysed H Urine Nitrate Negative Urine Bilirubin Negative Urine Urobilinogen 0.2 Ur Leukocyte Esterase Small H Urine RBC 0 - 2 Urine WBC 2 - 5 Ur Epithelial Cells 10 - 12 Urine Bacteria Few Urine HCG, Qual Negative Assessment & Plan - Assessment and Plan (Free Text) Assessment: 32 year old female with a past medical history significant for GERD and recurrent UTI's who presents for failed outpatient treatment of UTI with PO Doxycycline and Flagyl. Patient speaks primarily gibraltarian and translation was provided by [employer]. Plan: 1. E. Coli UTI -IV Merrem 1gm Q8H -Normal Saline at 100mls/hr -Ibuprofen 600mg Q4H PRN for pain control -Zofran 4mg IVP Q4H PRN for N/V -Tylenol PRN for fever -ID consulted, all recommendations appreciated GI Prophylaxis: Protonix DVT Prophylaxis: SCD's Diet: Regular Patient seen and case discussed with attending, Dr. Reyna. Celeste PGY1 - Date & Time Date: 10/28/17 Time: 21:56 Decision To Admit - Pt Status Changed To: Hospital Disposition Of: Inpatient Admission - Admit Certification Admit to Inpatient:: After my assessment, the patient will require hospitalization for at least two midnights. This is because of the severity of symptoms shown, intensity of services needed, and/or the medical risk in this patient being treated as an outpatient. - . Bed Request Type: Med/Surg
[2017-10-28 22:21] VITALS: BMI 21.2
[2017-10-28] MEDS ORDERED: Pneumococcal 23-Valent Vaccine IM ONE (22:21)
[2017-10-28] MEDS: Sodium Chloride 0.9% 1,000 ML IV SCH (22:43)
[2017-10-29] MEDS: Meropenem IV 1 gm in NS 50 ML IVPB SCH ×4 (05:51→22:43)
[2017-10-29] MEDS ORDERED: Pantoprazole 40 mg EC Tab PO SCH (06:00)
[2017-10-29 07:07] LABS: BASO # 0.01 K/mm3 (0.0-2.0); BASO % 0.2 % (0.0-3.0); EOS # 0.1 (0.0-0.7); EOS % 1.8 % (1.5-5.0); GRAN # 1.69 (1.4-6.5); GRAN % 34.7 % (50.0-68.0); HEMOGLOBIN 10.3 g/dL (12.0-16.0); LYMPH # 2.6 (1.2-3.4); LYMPH % 52.8 % (22.0-35.0); MEAN CELL VOLUME 87.5 fl (80.0-105.0); MEAN CORPUSCULAR HEMOGLOBIN 27.9 pg (25.0-35.0); MEAN CORPUSCULAR HGB CONC 31.9 g/dl (31.0-37.0); MEAN PLATELET VOLUME 8.6 fl (7.0-11.0); MONO # 0.5 (0.1-0.6); MONO % 10.5 % (1.0-6.0); RBC 3.69 10^6/uL (3.5-6.1); RED CELL DISTRIBUTION WIDTH 15.7 % (11.5-14.5); WHITE BLOOD COUNT 4.9 10^3/ul (4.5-11.0)
[2017-10-29 07:29] LABS: ALB/GLOB RATIO 1.1 (1.1-1.8); ALBUMIN 3.3 g/dL (3.0-4.8); ALT/SGPT 57 U/L (7-56); AST/SGOT 47 U/L (14-36); BLOOD UREA NITROGEN 9 mg/dL (7-21); CALCIUM 8.5 mg/dL (8.4-10.5); GFR AFRICAN-AMERICAN > 60; GFR NON-AFRICAN AMERICAN > 60
--- NOTE | 2017-10-29 08:34 | RAD ---
HISTORY: medical clearance COMPARISON: No prior. FINDINGS: LUNGS: No active pulmonary disease. PLEURA: No significant pleural effusion identified, no pneumothorax apparent. CARDIOVASCULAR: Normal. OSSEOUS STRUCTURES: No significant abnormalities. VISUALIZED UPPER ABDOMEN: Normal. OTHER FINDINGS: None. IMPRESSION: No active disease.
[2017-10-29] MEDS: Sodium Chloride 0.9% 1,000 ML IV SCH (13:35)
--- NOTE | 2017-10-29 13:40 | CP.PCM.PN ---
<Jacques Guzman - Last Filed: 10/29/17 13:36> Subjective - Date & Time of Evaluation Date of Evaluation: 10/29/17 Time of Evaluation: 13:36 - Subjective Subjective: Patient seen and examined at bedside. Doing well. Still complaining of mild right flank pain. Denies pain with urination. Denies blood in urine. Joel abdominal pain. No fevers or chills. Tolerating diet. Objective - Vital Signs/Intake and Output Vital Signs (last 24 hours): Temp Pulse Resp BP Pulse Ox 97.6 F 74 20 105/67 99 10/29/17 06:00 10/29/17 06:00 10/29/17 06:00 10/29/17 06:00 10/29/17 06:00 Intake and Output: 10/29/17 10/29/17 06:59 18:59 Intake Total 180 Balance 180 - Medications Medications: Current Medications Acetaminophen (Tylenol 325mg Tab) 650 mg PO Q6H PRN PRN Reason: Fever >100.4 F Sodium Chloride (Sodium Chloride 0.9%) 1,000 mls @ 100 mls/hr IV .Q10H JOHN Last Admin: 10/28/17 22:43 Dose: 100 mls/hr Meropenem (Merrem Iv 1 Gm Premix) 50 mls @ 100 mls/hr IVPB Q8 JOHN Stop: 10/29/17 14:29 Last Admin: 10/29/17 05:51 Dose: 100 mls/hr Ibuprofen (Motrin Tab) 600 mg PO Q6 PRN PRN Reason: NASAL CONGESTION Last Admin: 10/28/17 23:10 Dose: 600 mg Ondansetron HCl (Zofran Inj) 4 mg IVP Q4H PRN PRN Reason: Nausea/Vomiting - Labs Labs: 10/29/17 06:20 10/29/17 06:20 - Constitutional Appears: Well - Head Exam Head Exam: ATRAUMATIC, NORMAL INSPECTION, NORMOCEPHALIC - Eye Exam Eye Exam: EOMI, Normal appearance, PERRL Pupil Exam: NORMAL ACCOMODATION, PERRL - ENT Exam ENT Exam: Mucous Membranes Moist, Normal Exam - Neck Exam Neck Exam: Full ROM, Normal Inspection. absent: Lymphadenopathy - Respiratory Exam Respiratory Exam: Clear to Ausculation Bilateral, NORMAL BREATHING PATTERN - Cardiovascular Exam Cardiovascular Exam: REGULAR RHYTHM, +S1, +S2. absent: Murmur - GI/Abdominal Exam GI & Abdominal Exam: Soft, Normal Bowel Sounds. absent: Tenderness - Extremities Exam Extremities Exam: Full ROM, Normal Capillary Refill, Normal Inspection. absent : Joint Swelling, Pedal Edema - Back Exam Back Exam: NORMAL INSPECTION - Neurological Exam Neurological Exam: Alert, Awake, CN II-XII Intact, Normal Gait, Oriented x3 - Psychiatric Exam Psychiatric exam: Normal Affect, Normal Mood - Skin Skin Exam: Dry, Intact, Normal Color, Warm Assessment and Plan (1) UTI due to extended-spectrum beta lactamase (ESBL) producing Escherichia coli Assessment & Plan: Merrem 500 Q8 NS @ 100 ID (Bev) F/U repeat urine cultures F/U blood cultures Heparin Q8 for dvt ppx scds No GI ppx indicated at this time Probiotic Status: Acute <Erasto Saavedradesi B - Last Filed: 10/29/17 16:38> Objective - Vital Signs/Intake and Output Vital Signs (last 24 hours): Temp Pulse Resp BP Pulse Ox 98.2 F 62 16 102/63 98 10/29/17 14:00 10/29/17 14:00 10/29/17 14:00 10/29/17 14:00 10/29/17 14:00 Intake and Output: 10/29/17 10/29/17 06:59 18:59 Intake Total 180 600 Balance 180 600 - Medications Medications: Current Medications Acetaminophen (Tylenol 325mg Tab) 650 mg PO Q6H PRN PRN Reason: Fever >100.4 F Heparin Sodium (Porcine) (Heparin) 5,000 units SC Q8 JOHN PRN Reason: Protocol Sodium Chloride (Sodium Chloride 0.9%) 1,000 mls @ 100 mls/hr IV .Q10H JOHN Last Admin: 10/29/17 13:35 Dose: 100 mls/hr Ibuprofen (Motrin Tab) 600 mg PO Q6 PRN PRN Reason: NASAL CONGESTION Last Admin: 10/28/17 23:10 Dose: 600 mg Lactobacillus Acidophilus (Bacid Acidophilus) 1 cap PO BID JOHN Ondansetron HCl (Zofran Inj) 4 mg IVP Q4H PRN PRN Reason: Nausea/Vomiting - Labs Labs: 10/29/17 06:20 10/29/17 06:20 Attending/Attestation - Attestation I have personally seen and examined this patient.: Yes I have fully participated in the care of the patient.: Yes I have reviewed all pertinent clinical information, including history, physical exam and plan: Yes Notes (Text): I have seen and examined the patient at bedside. Agree with the above note with the following additions/ exceptions: Briefly this is 32 year old female with history of recurrent UTI who failed outpatient antibiotic treatment came for management of UTI. Urine culture is growing ESBL. Continue meropenem. ID on board.
[2017-10-29] MEDS: Lactobacillus Acidophilus 500 MU Cap PO SCH (17:24)
[2017-10-29] MEDS ORDERED: Cefepime 1gm in NS 100ml 1 GM/100 ML BAG IVPB SCH (17:28)
[2017-10-30] MEDS: Sodium Chloride 0.9% 1,000 ML IV SCH ×3 (03:45→23:45)
--- NOTE | 2017-10-30 04:01 | CON ---
DATE: 10/29/2017 LOCATION: The patient is seen in [facility], bed 2. CHIEF COMPLAINT: Right flank pain times several days. HISTORY OF PRESENT ILLNESS: This is a 32-year-old female with the history of GERD, urinary tract infections, history of PID who has been treated as outpatient for urinary tract infection in emergency room on multiple occasions, have CAT scan done, was treated with p.o. antibiotics without improvement and patient complain of right upper quadrant pain, right flank pain, dysuria and frequency and she does complain of right flank pain and no nausea or vomiting at this time. She did have low-grade fevers. Patient was seen in the emergency room on by . Patient is complaining of right-sided abdominal pain, had nausea at that time, did not have any fevers and chills, complaining of right flank pain. Cultures were done at that time. The patient also had a CAT scan of the abdomen and pelvis at that time on the , suspicious for inflammation of the anterior pelvis secondary to PID and patient had cultures done at that time, which grew E. coli, which is ESBL E. coli. Patient also had an E. coli in 06/2017 from the urine, which was duncan sensitive at that time. PAST MEDICAL HISTORY: Significant for GERD, urinary tract infection, questionable PID. PAST SURGICAL HISTORY: Appendectomy and an eye surgery. ASSESSMENT AND PLAN: This is a 32-year-old female with gastroesophageal reflux disease, urinary tract infection, failure as outpatient therapy, presenting with a right flank pain, had a CAT scan, which showed questionable pelvic inflammatory disease. Cultures are positive, extended-spectrum beta-lactamase Escherichia coli, right pyelonephritis and we will treat the patient with meropenem and doxycycline, pending repeat blood, urine cultures, pending Gonorrhea and Chlamydia workup, human immunodeficiency virus and rapid plasma reagin. We will follow with you. Jair Brown MD
[2017-10-30] MEDS: Meropenem IV 1 gm in NS 50 ML IVPB SCH ×3 (05:01→21:18)
[2017-10-30 06:57] LABS: BASO # 0.01 K/mm3 (0.0-2.0); BASO % 0.2 % (0.0-3.0); EOS # 0.1 (0.0-0.7); EOS % 1.6 % (1.5-5.0); GRAN # 1.28 (1.4-6.5); GRAN % 25.6 % (50.0-68.0); HEMOGLOBIN 10.8 g/dL (12.0-16.0); LYMPH # 3.2 (1.2-3.4); MEAN CELL VOLUME 87.2 fl (80.0-105.0); MEAN CORPUSCULAR HEMOGLOBIN 28.2 pg (25.0-35.0); MEAN CORPUSCULAR HGB CONC 32.3 g/dl (31.0-37.0); MEAN PLATELET VOLUME 8.6 fl (7.0-11.0); MONO # 0.5 (0.1-0.6); MONO % 9.6 % (1.0-6.0); RBC 3.83 10^6/uL (3.5-6.1); RED CELL DISTRIBUTION WIDTH 15.4 % (11.5-14.5)
[2017-10-30 07:23] LABS: ALB/GLOB RATIO 1.1 (1.1-1.8); ALBUMIN 3.3 g/dL (3.0-4.8); ALT/SGPT 46 U/L (7-56); AST/SGOT 35 U/L (14-36); BLOOD UREA NITROGEN 8 mg/dL (7-21); CALCIUM 8.4 mg/dL (8.4-10.5); GFR AFRICAN-AMERICAN > 60; GFR NON-AFRICAN AMERICAN > 60
[2017-10-30] MEDS ORDERED: Sodium Chloride 0.9% 1,000 ML IV STA (07:54)
[2017-10-30] MEDS: Lactobacillus Acidophilus 500 MU Cap PO SCH ×2 (10:29→17:01)
--- NOTE | 2017-10-30 11:26 | CP.PCM.PN ---
Subjective - Date & Time of Evaluation Date of Evaluation: 10/30/17 Time of Evaluation: 11:23 - Subjective Subjective: Patient seen and examined at bedside. Complaining of R. flank pain. Denies any blood in urine or pain with urination. No nausea, vomiting, fever or chills, no diarrhea. No other complaints at this time. Objective - Vital Signs/Intake and Output Vital Signs (last 24 hours): Temp Pulse Resp BP Pulse Ox 98.3 F 62 18 93/62 L 99 10/30/17 07:00 10/30/17 07:00 10/30/17 07:00 10/30/17 07:00 10/30/17 07:00 Intake and Output: 10/30/17 10/30/17 06:59 18:59 Intake Total 180 Balance 180 - Medications Medications: Current Medications Acetaminophen (Tylenol 325mg Tab) 650 mg PO Q6H PRN PRN Reason: Fever >100.4 F Doxycycline Hyclate (Doryx) 100 mg PO Q12 JOHN PRN Reason: Protocol Stop: 11/07/17 22:01 Last Admin: 10/30/17 10:28 Dose: 100 mg Heparin Sodium (Porcine) (Heparin) 5,000 units SC Q8 JOHN PRN Reason: Protocol Last Admin: 10/30/17 05:01 Dose: 5,000 units Sodium Chloride (Sodium Chloride 0.9%) 1,000 mls @ 100 mls/hr IV .Q10H JOHN Last Admin: 10/30/17 03:45 Dose: 100 mls/hr Meropenem (Merrem Iv 1 Gm Premix) 50 mls @ 100 mls/hr IVPB Q8 JOHN PRN Reason: Protocol Stop: 11/07/17 17:46 Last Admin: 10/30/17 05:01 Dose: 100 mls/hr Ibuprofen (Motrin Tab) 600 mg PO Q6 PRN PRN Reason: NASAL CONGESTION Last Admin: 10/30/17 08:48 Dose: 600 mg Lactobacillus Acidophilus (Bacid Acidophilus) 1 cap PO BID JOHN Last Admin: 10/30/17 10:29 Dose: 1 cap Ondansetron HCl (Zofran Inj) 4 mg IVP Q4H PRN PRN Reason: Nausea/Vomiting - Labs Labs: 10/30/17 06:15 10/30/17 06:15 - Constitutional Appears: Well - Head Exam Head Exam: ATRAUMATIC, NORMAL INSPECTION, NORMOCEPHALIC - Eye Exam Eye Exam: EOMI, Normal appearance, PERRL Pupil Exam: NORMAL ACCOMODATION, PERRL - ENT Exam ENT Exam: Mucous Membranes Moist, Normal Exam - Neck Exam Neck Exam: Full ROM, Normal Inspection. absent: Lymphadenopathy - Respiratory Exam Respiratory Exam: Clear to Ausculation Bilateral, NORMAL BREATHING PATTERN - Cardiovascular Exam Cardiovascular Exam: REGULAR RHYTHM, +S1, +S2. absent: Murmur - GI/Abdominal Exam GI & Abdominal Exam: Soft, Tenderness (mild tenderness to palpation in the right flank), Normal Bowel Sounds - Extremities Exam Extremities Exam: Full ROM, Normal Capillary Refill, Normal Inspection. absent : Joint Swelling, Pedal Edema - Back Exam Back Exam: NORMAL INSPECTION - Neurological Exam Neurological Exam: Alert, Awake, CN II-XII Intact, Normal Gait, Oriented x3 - Psychiatric Exam Psychiatric exam: Normal Affect, Normal Mood - Skin Skin Exam: Dry, Intact, Normal Color, Warm Assessment and Plan (1) UTI due to extended-spectrum beta lactamase (ESBL) producing Escherichia coli Assessment & Plan: Doxy/Merrem NS @ 100 Continue therapy until Thursday and Check with ID for discharge Abx reccs Status: Acute
--- NOTE | 2017-10-30 16:53 | CP.PCM.PN ---
Subjective - Date & Time of Evaluation Date of Evaluation: 10/30/17 Time of Evaluation: 11:10 - Subjective Subjective: Comfortable, no fevers, no flank pain, no abdominal pain, no nausea, not in distress. Objective - Vital Signs/Intake and Output Vital Signs (last 24 hours): Temp Pulse Resp BP Pulse Ox 97.9 F 71 18 100/65 97 10/30/17 14:00 10/30/17 14:00 10/30/17 14:00 10/30/17 14:00 10/30/17 14:00 Intake and Output: 10/30/17 10/30/17 06:59 18:59 Intake Total 180 Balance 180 - Medications Medications: Current Medications Acetaminophen (Tylenol 325mg Tab) 650 mg PO Q6H PRN PRN Reason: Fever >100.4 F Doxycycline Hyclate (Doryx) 100 mg PO Q12 JOHN PRN Reason: Protocol Stop: 11/07/17 22:01 Last Admin: 10/30/17 10:28 Dose: 100 mg Heparin Sodium (Porcine) (Heparin) 5,000 units SC Q8 JOHN PRN Reason: Protocol Last Admin: 10/30/17 14:09 Dose: 5,000 units Sodium Chloride (Sodium Chloride 0.9%) 1,000 mls @ 100 mls/hr IV .Q10H JOHN Last Admin: 10/30/17 03:45 Dose: 100 mls/hr Meropenem (Merrem Iv 1 Gm Premix) 50 mls @ 100 mls/hr IVPB Q8 JOHN PRN Reason: Protocol Stop: 11/07/17 17:46 Last Admin: 10/30/17 14:10 Dose: 100 mls/hr Ibuprofen (Motrin Tab) 600 mg PO Q6 PRN PRN Reason: NASAL CONGESTION Last Admin: 10/30/17 08:48 Dose: 600 mg Lactobacillus Acidophilus (Bacid Acidophilus) 1 cap PO BID JOHN Last Admin: 10/30/17 10:29 Dose: 1 cap Ondansetron HCl (Zofran Inj) 4 mg IVP Q4H PRN PRN Reason: Nausea/Vomiting - Labs Labs: 10/30/17 06:15 10/30/17 06:15 - Constitutional Appears: Non-toxic - Head Exam Head Exam: NORMAL INSPECTION - ENT Exam ENT Exam: Mucous Membranes Moist - Neck Exam Neck Exam: absent: Meningismus - Respiratory Exam Respiratory Exam: Decreased Breath Sounds - Cardiovascular Exam Cardiovascular Exam: +S1, +S2 - GI/Abdominal Exam GI & Abdominal Exam: Soft. absent: Tenderness Assessment and Plan - Assessment and Plan (Free Text) Plan: Assessment consider right sided pyelonephritis R/O STI in this patient with history of pelvic inflammatory disease GERD history of UTI S/P appendectomy Plan continue Doxycycline and Merrem pending urine GC; urine cx are negative but it may have been taken after antibiotics were given follow up RPR and HIV test as well will monitor clinically
[2017-10-31] MEDS: Meropenem IV 1 gm in NS 50 ML IVPB SCH ×3 (05:05→21:13)
[2017-10-31 06:52] LABS: BASO # 0.01 K/mm3 (0.0-2.0); BASO % 0.2 % (0.0-3.0); EOS % 0.8 % (1.5-5.0); GRAN # 1.39 (1.4-6.5); GRAN % 28.8 % (50.0-68.0); HEMOGLOBIN 10.8 g/dL (12.0-16.0); LYMPH # 2.9 (1.2-3.4); LYMPH % 60.7 % (22.0-35.0); MEAN CORPUSCULAR HEMOGLOBIN 28.1 pg (25.0-35.0); MEAN CORPUSCULAR HGB CONC 32.3 g/dl (31.0-37.0); MEAN PLATELET VOLUME 8.3 fl (7.0-11.0); MONO # 0.5 (0.1-0.6); MONO % 9.5 % (1.0-6.0); RBC 3.84 10^6/uL (3.5-6.1); RED CELL DISTRIBUTION WIDTH 15.3 % (11.5-14.5); WHITE BLOOD COUNT 4.8 10^3/ul (4.5-11.0)
[2017-10-31 07:10] LABS: ALB/GLOB RATIO 1.1 (1.1-1.8); ALBUMIN 3.5 g/dL (3.0-4.8); ALT/SGPT 44 U/L (7-56); AST/SGOT 36 U/L (14-36); BLOOD UREA NITROGEN 8 mg/dL (7-21); CALCIUM 8.9 mg/dL (8.4-10.5); GFR AFRICAN-AMERICAN > 60; GFR NON-AFRICAN AMERICAN > 60
[2017-10-31] MEDS: Lactobacillus Acidophilus 500 MU Cap PO SCH ×2 (09:21→17:59)
--- NOTE | 2017-10-31 18:24 | CP.PCM.PN ---
<Jacques Guzman - Last Filed: 10/31/17 18:21> Subjective - Date & Time of Evaluation Date of Evaluation: 10/31/17 Time of Evaluation: 18:21 - Subjective Subjective: Patient seen and examined at bedside. Doing well with no complaints at this time. Denies flank pain, pain with urination. Blood in urine. Malodorous urine. No fevers or chills. No other complaints at this time. Objective - Vital Signs/Intake and Output Vital Signs (last 24 hours): Temp Pulse Resp BP Pulse Ox 98.2 F 88 18 91/60 L 98 10/31/17 14:00 10/31/17 14:00 10/31/17 14:00 10/31/17 14:00 10/31/17 14:00 Intake and Output: 10/31/17 10/31/17 06:59 18:59 Intake Total 780 Output Total 1 Balance 779 - Medications Medications: Current Medications Doxycycline Hyclate (Doryx) 100 mg PO Q12 JOHN PRN Reason: Protocol Stop: 11/07/17 22:01 Last Admin: 10/31/17 09:21 Dose: 100 mg Heparin Sodium (Porcine) (Heparin) 5,000 units SC Q8 JOHN PRN Reason: Protocol Last Admin: 10/31/17 14:25 Dose: 5,000 units Sodium Chloride (Sodium Chloride 0.9%) 1,000 mls @ 100 mls/hr IV .Q10H [facility] Last Admin: 10/30/17 23:45 Dose: Not Given Meropenem (Merrem Iv 1 Gm Premix) 50 mls @ 100 mls/hr IVPB Q8 JOHN PRN Reason: Protocol Stop: 11/07/17 17:46 Last Admin: 10/31/17 14:25 Dose: 100 mls/hr Lactobacillus Acidophilus (Bacid Acidophilus) 1 cap PO BID JOHN Last Admin: 10/31/17 17:59 Dose: 1 cap Ondansetron HCl (Zofran Inj) 4 mg IVP Q4H PRN PRN Reason: Nausea/Vomiting - Labs Labs: 10/31/17 06:30 10/31/17 06:30 - Constitutional Appears: Well - Head Exam Head Exam: ATRAUMATIC, NORMAL INSPECTION, NORMOCEPHALIC - Eye Exam Eye Exam: EOMI, Normal appearance, PERRL Pupil Exam: NORMAL ACCOMODATION, PERRL - ENT Exam ENT Exam: Mucous Membranes Moist, Normal Exam - Neck Exam Neck Exam: Full ROM, Normal Inspection. absent: Lymphadenopathy - Respiratory Exam Respiratory Exam: Clear to Ausculation Bilateral, NORMAL BREATHING PATTERN - Cardiovascular Exam Cardiovascular Exam: REGULAR RHYTHM, +S1, +S2. absent: Murmur - GI/Abdominal Exam GI & Abdominal Exam: Soft, Normal Bowel Sounds. absent: Tenderness - Extremities Exam Extremities Exam: Full ROM, Normal Capillary Refill, Normal Inspection. absent : Joint Swelling, Pedal Edema - Back Exam Back Exam: NORMAL INSPECTION. absent: CVA tenderness (L), CVA tenderness (R) - Neurological Exam Neurological Exam: Alert, Awake, CN II-XII Intact, Normal Gait, Oriented x3 - Psychiatric Exam Psychiatric exam: Normal Affect, Normal Mood - Skin Skin Exam: Dry, Intact, Normal Color, Warm Assessment and Plan (1) UTI due to extended-spectrum beta lactamase (ESBL) producing Escherichia coli Assessment & Plan: (1) UTI due to extended-spectrum beta lactamase (ESBL) producing Escherichia coli Assessment & Plan: Doxy/Merrem NS @ 100 Repeat blood cultures and urine cultures are negative HIV negative RPR negative FTA-ABS pending Status: Acute Status: Acute <Krystal Sauceda - Last Filed: 11/01/17 10:47> Objective - Vital Signs/Intake and Output Vital Signs (last 24 hours): Temp Pulse Resp BP Pulse Ox 97.7 F 96 H 20 101/68 100 11/01/17 06:00 11/01/17 06:00 11/01/17 06:00 11/01/17 06:00 11/01/17 06:00 Intake and Output: 11/01/17 11/01/17 06:59 18:59 Intake Total 780 Balance 780 - Medications Medications: Current Medications Doxycycline Hyclate (Doryx) 100 mg PO Q12 JOHN PRN Reason: Protocol Stop: 11/07/17 22:01 Last Admin: 11/01/17 09:32 Dose: 100 mg Heparin Sodium (Porcine) (Heparin) 5,000 units SC Q8 JOHN PRN Reason: Protocol Last Admin: 11/01/17 05:17 Dose: 5,000 units Sodium Chloride (Sodium Chloride 0.9%) 1,000 mls @ 100 mls/hr IV .Q10H [facility] Last Admin: 10/31/17 20:42 Dose: 100 mls/hr Meropenem (Merrem Iv 1 Gm Premix) 50 mls @ 100 mls/hr IVPB Q8 JOHN PRN Reason: Protocol Stop: 11/07/17 17:46 Last Admin: 11/01/17 05:17 Dose: 100 mls/hr Lactobacillus Acidophilus (Bacid Acidophilus) 1 cap PO BID JOHN Last Admin: 11/01/17 09:32 Dose: 1 cap Ondansetron HCl (Zofran Inj) 4 mg IVP Q4H PRN PRN Reason: Nausea/Vomiting - Labs Labs: 10/31/17 06:30 10/31/17 06:30 Attending/Attestation - Attestation I have personally seen and examined this patient.: Yes I have fully participated in the care of the patient.: Yes I have reviewed all pertinent clinical information, including history, physical exam and plan: Yes Notes (Text): Medical record note made by the resident after discussion with my direction and input after the patient was personally seen and examined by me. I have reviewed the chart and agree that the record accurately reflects by personal performance of the history, physical exam, data review, and medical decision-making, in the course for the patient. I have also personally directed the plan of care.
--- NOTE | 2017-10-31 20:12 | PN ---
DATE: 10/31/2017 SUBJECTIVE: Patient is in bed in no acute distress, nontoxic. PHYSICAL EXAMINATION: VITAL SIGNS: Temperature is 98, blood pressure is 100/70, respiratory rate of 18, heart rate of 68. HEENT: Unremarkable.. NECK: Supple. LUNGS: Decreased breath sounds. HEART: Normal S1, S2. ABDOMEN: Soft, nontender. LABORATORY EXAMINATION: Reveals white count of 4.8, hemoglobin of 10, platelets of 327. Chemistry reveals BUN of 8, creatinine of 0.6. Urinalysis is noted. RPR is nonreactive. HIV is nonreactive. Microbiology reveals the blood cultures are no growth, urine cultures are no growth. Review of orders reveals the patient to be on doxycycline and meropenem. ASSESSMENT AND PLAN: A 32-year-old female with right-sided pyelonephritis with Escherichia coli, which is extended-spectrum beta-lactamase. Escherichia coli from 10/25/2017, today is day #3 of 10-day of antibiotics. Also on doxycycline for possible sexually transmitted disease, awaiting for workup of that. The chlamydia gonorrhea culture workup is ordered, but not carried out. We will reorder it again. Jair Brown MD
[2017-10-31] MEDS: Sodium Chloride 0.9% 1,000 ML IV SCH (20:42)
[2017-11-01] MEDS: Meropenem IV 1 gm in NS 50 ML IVPB SCH ×3 (05:17→21:15)
[2017-11-01] MEDS: Lactobacillus Acidophilus 500 MU Cap PO SCH ×2 (09:32→18:08)
--- NOTE | 2017-11-01 11:42 | PN ---
DATE: 11/01/2017 SUBJECTIVE: The patient is in bed, in no acute distress, nontoxic. OBJECTIVE: VITAL SIGNS: Temperature is 97, blood pressure is 101/60, respiratory rate of 18, heart rate of 88. HEENT: Examination is unremarkable. NECK: Supple. LUNGS: Have decreased breath sounds. HEART: Normal S1, S2. ABDOMEN: Soft, nontender. DATA: Laboratory examination reveals a white count of 4.8, hemoglobin of 10, platelets of 327. Chemistries reveal a BUN of 8, creatinine of 0.6 and urinalysis is noted and RPR is nonreactive. FTA is negative. HIV is negative and microbiology reveals the blood cultures are negative. Urine cultures are negative on this admission, the patient did have a positive urine culture from 10/25 which was ESBL E. coli. ASSESSMENT AND PLAN: This is a 32-year-old female with right-sided pyelonephritis with extended spectrum beta-lactamase Escherichia coli, today is day #4 of 10 days of antibiotics, maybe able to use ertapenem 1 g IV every 24 hours once daily to complete therapy as outpatient, today is day #4 of 10 days. Jair Brown MD
--- NOTE | 2017-11-01 12:57 | CP.PCM.PN ---
<Jacques Guzman - Last Filed: 11/01/17 12:53> Subjective - Date & Time of Evaluation Date of Evaluation: 11/01/17 Time of Evaluation: 12:53 - Subjective Subjective: Patient seen and examined at bedside. Doing well with no complaints at this time. No flank pain, No pain with urination, no malodorous urine. No blood in urine. Objective - Vital Signs/Intake and Output Vital Signs (last 24 hours): Temp Pulse Resp BP Pulse Ox 97.7 F 96 H 20 101/68 100 11/01/17 06:00 11/01/17 06:00 11/01/17 06:00 11/01/17 06:00 11/01/17 06:00 Intake and Output: 11/01/17 11/01/17 06:59 18:59 Intake Total 780 Balance 780 - Medications Medications: Current Medications Doxycycline Hyclate (Doryx) 100 mg PO Q12 JOHN PRN Reason: Protocol Stop: 11/07/17 22:01 Last Admin: 11/01/17 09:32 Dose: 100 mg Heparin Sodium (Porcine) (Heparin) 5,000 units SC Q8 JOHN PRN Reason: Protocol Last Admin: 11/01/17 05:17 Dose: 5,000 units Sodium Chloride (Sodium Chloride 0.9%) 1,000 mls @ 100 mls/hr IV .Q10H [facility] Last Admin: 10/31/17 20:42 Dose: 100 mls/hr Meropenem (Merrem Iv 1 Gm Premix) 50 mls @ 100 mls/hr IVPB Q8 JOHN PRN Reason: Protocol Stop: 11/07/17 17:46 Last Admin: 11/01/17 05:17 Dose: 100 mls/hr Lactobacillus Acidophilus (Bacid Acidophilus) 1 cap PO BID JOHN Last Admin: 11/01/17 09:32 Dose: 1 cap Ondansetron HCl (Zofran Inj) 4 mg IVP Q4H PRN PRN Reason: Nausea/Vomiting - Labs Labs: 10/31/17 06:30 10/31/17 06:30 - Constitutional Appears: Well - Head Exam Head Exam: ATRAUMATIC, NORMAL INSPECTION, NORMOCEPHALIC - Eye Exam Eye Exam: EOMI, Normal appearance, PERRL Pupil Exam: NORMAL ACCOMODATION, PERRL - ENT Exam ENT Exam: Mucous Membranes Moist, Normal Exam - Neck Exam Neck Exam: Full ROM, Normal Inspection. absent: Lymphadenopathy - Respiratory Exam Respiratory Exam: Clear to Ausculation Bilateral, NORMAL BREATHING PATTERN - Cardiovascular Exam Cardiovascular Exam: REGULAR RHYTHM, +S1, +S2. absent: Murmur - GI/Abdominal Exam GI & Abdominal Exam: Soft, Normal Bowel Sounds. absent: Tenderness - Extremities Exam Extremities Exam: Full ROM, Normal Capillary Refill, Normal Inspection. absent : Joint Swelling, Pedal Edema - Back Exam Back Exam: NORMAL INSPECTION - Neurological Exam Neurological Exam: Alert, Awake, CN II-XII Intact, Normal Gait, Oriented x3 - Psychiatric Exam Psychiatric exam: Normal Affect, Normal Mood - Skin Skin Exam: Dry, Intact, Normal Color, Warm Assessment and Plan - Assessment and Plan (Free Text) Assessment: (1) UTI due to extended-spectrum beta lactamase (ESBL) producing Escherichia coli Assessment & Plan: Doxy/Merrem NS @ 100 Repeat blood cultures and urine cultures are negative HIV negative RPR negative FTA-ABS pending F/U GC workup Continue on Abx for total 10 days (09/15) - may substitute for Ertapenem 1g QD as outpatient. Status: Acute <Krystal Sauceda - Last Filed: 11/01/17 14:11> Objective - Vital Signs/Intake and Output Vital Signs (last 24 hours): Temp Pulse Resp BP Pulse Ox 97.7 F 96 H 20 101/68 100 11/01/17 06:00 11/01/17 06:00 11/01/17 06:00 11/01/17 06:00 11/01/17 06:00 Intake and Output: 11/01/17 11/01/17 06:59 18:59 Intake Total 780 Balance 780 - Medications Medications: Current Medications Doxycycline Hyclate (Doryx) 100 mg PO Q12 [facility] PRN Reason: Protocol Stop: 11/07/17 22:01 Last Admin: 11/01/17 09:32 Dose: 100 mg Heparin Sodium (Porcine) (Heparin) 5,000 units SC Q8 JOHN PRN Reason: Protocol Last Admin: 11/01/17 13:37 Dose: 5,000 units Sodium Chloride (Sodium Chloride 0.9%) 1,000 mls @ 100 mls/hr IV .Q10H [facility] Last Admin: 10/31/17 20:42 Dose: 100 mls/hr Meropenem (Merrem Iv 1 Gm Premix) 50 mls @ 100 mls/hr IVPB Q8 JOHN PRN Reason: Protocol Stop: 11/07/17 17:46 Last Admin: 11/01/17 13:37 Dose: 100 mls/hr Lactobacillus Acidophilus (Bacid Acidophilus) 1 cap PO BID JOHN Last Admin: 11/01/17 09:32 Dose: 1 cap Ondansetron HCl (Zofran Inj) 4 mg IVP Q4H PRN PRN Reason: Nausea/Vomiting - Labs Labs: 10/31/17 06:30 10/31/17 06:30 Attending/Attestation - Attestation I have personally seen and examined this patient.: Yes I have fully participated in the care of the patient.: Yes I have reviewed all pertinent clinical information, including history, physical exam and plan: Yes Notes (Text): 11/01/17 14:08 Medical record note made by the resident after discussion with my direction and input after the patient was personally seen and examined by me. I have reviewed the chart and agree that the record accurately reflects by personal performance of the history, physical exam, data review, and medical decision-making, in the course for the patient. I have also personally directed the plan of care. 32 years old female with Pyelonephrititis, Urine cultures grew ESBL on Meropenem as Per ID. Patient is afebrile, there is no costo vertebral tenderness. Will arrange for out patient Invanz 1 gram daily to complete 10 days course of IV antibiotics as recommended by ID. Management plan was discussed in detail with patient. Education was provided.
[2017-11-02] MEDS: Meropenem IV 1 gm in NS 50 ML IVPB SCH ×3 (05:28→21:05)
[2017-11-02] MEDS ORDERED: Sodium Chloride 0.9% 1,000 ML IV SCH ×2 (09:08→15:00)
[2017-11-02] MEDS: Lactobacillus Acidophilus 500 MU Cap PO SCH ×2 (09:48→17:47)
--- NOTE | 2017-11-02 10:16 | PN ---
DATE: 11/02/2017 SUBJECTIVE: The patient is in bed, in no acute distress, nontoxic. PHYSICAL EXAMINATION: VITAL SIGNS: Temperature is 98, blood pressure is 100/40, respiratory rate of 20. HEENT: Examination of HEENT is unremarkable. NECK: Supple. LUNGS: Have decreased breath sounds. HEART: Normal S1, S2. ABDOMEN: Soft, nontender. LABORATORY DATA: Laboratory examination reveals the blood cultures are negative. Urine cultures are negative and the initial urine culture is with E. coli, which is ESBL. Review of orders reveals the patient to be on meropenem. ASSESSMENT AND PLAN: A 32-year-old female with right-sided pyelonephritis with Escherichia coli extended-spectrum beta-lactamase. Today is day #5 of 10 days of meropenem and maybe able to switch to ertapenem 1 g IV every 24 hours to complete a 10-day therapy. Today is day #5 of 10 days. Case discussed with Dr. Sauceda. Dr. Sauceda's note from yesterday is reviewed. Jair Brown MD
[2017-11-02 10:18] LABS: HEMOGLOBIN 11.3 g/dL (12.0-16.0); MEAN CELL VOLUME 87.8 fl (80.0-105.0); MEAN CORPUSCULAR HEMOGLOBIN 28.7 pg (25.0-35.0); MEAN CORPUSCULAR HGB CONC 32.7 g/dl (31.0-37.0); MEAN PLATELET VOLUME 8.4 fl (7.0-11.0); RBC 3.94 10^6/uL (3.5-6.1); RED CELL DISTRIBUTION WIDTH 15.1 % (11.5-14.5); WHITE BLOOD COUNT 4.4 10^3/ul (4.5-11.0)
[2017-11-02 10:26] LABS: ALB/GLOB RATIO 1.2 (1.1-1.8); ALBUMIN 3.5 g/dL (3.0-4.8); ALT/SGPT 60 U/L (7-56); AST/SGOT 58 U/L (14-36); BLOOD UREA NITROGEN 8 mg/dL (7-21); CALCIUM 8.9 mg/dL (8.4-10.5); GFR AFRICAN-AMERICAN > 60; GFR NON-AFRICAN AMERICAN > 60
[2017-11-02] MEDS ORDERED: Sodium Chloride 0.9% 100 ML IV SCH (14:45)
[2017-11-02] MEDS: Sodium Chloride 0.9% 1,000 ML IV SCH ×2 (14:54→19:30)
--- NOTE | 2017-11-02 15:51 | CP.PCM.PN ---
<TriniZachary - Last Filed: 11/02/17 15:43> Subjective - Date & Time of Evaluation Date of Evaluation: 11/02/17 Time of Evaluation: 08:00 - Subjective Subjective: Medicine progress note: Dr. Sauceda Patient seen and examined at bedside. No acute overnight events. Patient denies any dysuria, flank pain, or any other complaints at this time. Objective - Vital Signs/Intake and Output Vital Signs (last 24 hours): Temp Pulse Resp BP Pulse Ox 98.4 F 60 18 90/48 L 99 11/02/17 08:09 11/02/17 08:09 11/02/17 08:09 11/02/17 08:09 11/02/17 08:09 Intake and Output: 11/02/17 11/02/17 06:59 18:59 Intake Total 960 240 Balance 960 240 - Medications Medications: Current Medications Doxycycline Hyclate (Doryx) 100 mg PO Q12 JOHN PRN Reason: Protocol Stop: 11/07/17 22:01 Last Admin: 11/02/17 09:48 Dose: 100 mg Heparin Sodium (Porcine) (Heparin) 5,000 units SC Q8 JOHN PRN Reason: Protocol Last Admin: 11/02/17 13:19 Dose: 5,000 units Meropenem (Merrem Iv 1 Gm Premix) 50 mls @ 100 mls/hr IVPB Q8 JOHN PRN Reason: Protocol Stop: 11/07/17 17:46 Last Admin: 11/02/17 13:18 Dose: 100 mls/hr Sodium Chloride (Sodium Chloride 0.9%) 1,000 mls @ 150 mls/hr IV .Q6H40M [facility] Last Admin: 11/02/17 14:54 Dose: 150 mls/hr Ibuprofen (Motrin Tab) 400 mg PO Q6H PRN PRN Reason: Headache Last Admin: 11/01/17 22:10 Dose: 400 mg Lactobacillus Acidophilus (Bacid Acidophilus) 1 cap PO BID [facility] Last Admin: 11/02/17 09:48 Dose: 1 cap Ondansetron HCl (Zofran Inj) 4 mg IVP Q4H PRN PRN Reason: Nausea/Vomiting - Labs Labs: 11/02/17 10:10 11/02/17 10:10 - Constitutional Appears: Well - Head Exam Head Exam: ATRAUMATIC, NORMAL INSPECTION, NORMOCEPHALIC - Eye Exam Eye Exam: EOMI, Normal appearance, PERRL Pupil Exam: NORMAL ACCOMODATION, PERRL - ENT Exam ENT Exam: Mucous Membranes Moist, Normal Exam - Neck Exam Neck Exam: Full ROM, Normal Inspection. absent: Lymphadenopathy - Respiratory Exam Respiratory Exam: Clear to Ausculation Bilateral, NORMAL BREATHING PATTERN - Cardiovascular Exam Cardiovascular Exam: REGULAR RHYTHM, +S1, +S2. absent: Murmur - GI/Abdominal Exam GI & Abdominal Exam: Soft, Normal Bowel Sounds. absent: Tenderness - Extremities Exam Extremities Exam: Full ROM, Normal Capillary Refill, Normal Inspection. absent : Joint Swelling, Pedal Edema - Back Exam Back Exam: NORMAL INSPECTION - Neurological Exam Neurological Exam: Alert, Awake, CN II-XII Intact, Normal Gait, Oriented x3 - Psychiatric Exam Psychiatric exam: Normal Affect, Normal Mood - Skin Skin Exam: Dry, Intact, Normal Color, Warm Assessment and Plan - Assessment and Plan (Free Text) Assessment: 32 year old female with a past medical history significant for GERD and recurrent UTI's who presents for failed outpatient treatment of UTI with PO Doxycycline and Flagyl. Primary urine culture grew ESBL; Patient's repeat blood and urine cultures were negative. HIV and RPR are negative. Imaging revealed no hydronephrosis. Patient's current labs and vitals are stable without SIRS criteria. Plan Pyelonephritis - Meropenem with Doxy day 5/10 - Zofran, NaCl, Lactobacillus bid - Infectious Disease Consult: Dr. Pablo - Will continue Ertapenem as an outpatient to complete 10 day course; will arrange with ID tomorrow History GERD - No intervention at this time GI/DVT Prophylaxis - SCD; no GI PPX needed <Krystal Sauceda - Last Filed: 11/04/17 16:46> Objective - Vital Signs/Intake and Output Vital Signs (last 24 hours): Temp Pulse Resp BP Pulse Ox 98 F 59 L 20 102/70 100 11/04/17 06:00 11/04/17 06:00 11/04/17 06:00 11/04/17 06:00 11/03/17 14:00 Intake and Output: 11/04/17 11/04/17 06:59 18:59 Intake Total 600 420 Balance 600 420 - Medications Medications: Current Medications Doxycycline Hyclate (Doryx) 100 mg PO Q12 JOHN PRN Reason: Protocol Stop: 11/07/17 22:01 Last Admin: 11/04/17 09:21 Dose: 100 mg Heparin Sodium (Porcine) (Heparin) 5,000 units SC Q8 JOHN PRN Reason: Protocol Last Admin: 11/04/17 14:18 Dose: 5,000 units Sodium Chloride (Sodium Chloride 0.9%) 1,000 mls @ 150 mls/hr IV .Q6H40M [facility] Last Admin: 11/04/17 14:19 Dose: 150 mls/hr Ertapenem 1 gm/ Sodium (Chloride) 50 mls @ 100 mls/hr IVPB Q24H JOHN Last Admin: 11/04/17 09:49 Dose: 100 mls/hr Ibuprofen (Motrin Tab) 400 mg PO Q6H PRN PRN Reason: Headache Last Admin: 11/01/17 22:10 Dose: 400 mg Lactobacillus Acidophilus (Bacid Acidophilus) 1 cap PO BID [facility] Last Admin: 11/04/17 09:21 Dose: 1 cap Ondansetron HCl (Zofran Inj) 4 mg IVP Q4H PRN PRN Reason: Nausea/Vomiting - Labs Labs: 11/03/17 09:00 11/03/17 09:00 Attending/Attestation - Attestation I have personally seen and examined this patient.: Yes I have fully participated in the care of the patient.: Yes I have reviewed all pertinent clinical information, including history, physical exam and plan: Yes Notes (Text): 11/04/17 16:46 Medical record note made by the resident after discussion with my direction and input after the patient was personally seen and examined by me. I have reviewed the chart and agree that the record accurately reflects by personal performance of the history, physical exam, data review, and medical decision-making, in the course for the patient. I have also personally directed the plan of care.
[2017-11-03] MEDS: Meropenem IV 1 gm in NS 50 ML IVPB SCH ×2 (05:49→14:39)
[2017-11-03 09:11] LABS: BASO # 0.03 K/mm3 (0.0-2.0); BASO % 0.5 % (0.0-3.0); EOS # 0.1 (0.0-0.7); EOS % 1.1 % (1.5-5.0); GRAN # 1.97 (1.4-6.5); GRAN % 34.8 % (50.0-68.0); HEMOGLOBIN 10.8 g/dL (12.0-16.0); LYMPH # 3.2 (1.2-3.4); LYMPH % 56.5 % (22.0-35.0); MEAN CELL VOLUME 87.2 fl (80.0-105.0); MEAN CORPUSCULAR HEMOGLOBIN 28.1 pg (25.0-35.0); MEAN CORPUSCULAR HGB CONC 32.2 g/dl (31.0-37.0); MEAN PLATELET VOLUME 8.4 fl (7.0-11.0); MONO # 0.4 (0.1-0.6); MONO % 7.1 % (1.0-6.0); RBC 3.84 10^6/uL (3.5-6.1); RED CELL DISTRIBUTION WIDTH 15.4 % (11.5-14.5); WHITE BLOOD COUNT 5.7 10^3/ul (4.5-11.0)
[2017-11-03 09:25] LABS: ALB/GLOB RATIO 1.2 (1.1-1.8); ALBUMIN 3.4 g/dL (3.0-4.8); ALT/SGPT 75 U/L (7-56); AST/SGOT 66 U/L (14-36); BLOOD UREA NITROGEN 7 mg/dL (7-21); CALCIUM 8.5 mg/dL (8.4-10.5); GFR AFRICAN-AMERICAN > 60; GFR NON-AFRICAN AMERICAN > 60
[2017-11-03] MEDS: Lactobacillus Acidophilus 500 MU Cap PO SCH ×2 (10:20→17:41)
[2017-11-03 14:46] VITALS: O2SAT 100
--- NOTE | 2017-11-03 15:24 | CP.PCM.PN ---
<Jacques Guzman - Last Filed: 11/03/17 15:29> Subjective - Date & Time of Evaluation Date of Evaluation: 11/03/17 Time of Evaluation: 15:21 - Subjective Subjective: Patient seen and examined at bedside. Doing well. No complaints at this time. Pain has resolved. No fevers or chills. No nausea or vomiting. No dysuria or blood in urine. Objective - Vital Signs/Intake and Output Vital Signs (last 24 hours): Temp Pulse Resp BP Pulse Ox 97.7 F 80 18 94/61 L 100 11/03/17 14:00 11/03/17 14:00 11/03/17 14:00 11/03/17 14:00 11/03/17 14:00 Intake and Output: 11/03/17 11/03/17 06:59 18:59 Intake Total 3980 540 Balance 3980 540 - Medications Medications: Current Medications Doxycycline Hyclate (Doryx) 100 mg PO Q12 JOHN PRN Reason: Protocol Stop: 11/07/17 22:01 Last Admin: 11/03/17 10:20 Dose: 100 mg Heparin Sodium (Porcine) (Heparin) 5,000 units SC Q8 JOHN PRN Reason: Protocol Last Admin: 11/03/17 14:39 Dose: 5,000 units Sodium Chloride (Sodium Chloride 0.9%) 1,000 mls @ 150 mls/hr IV .Q6H40M [facility] Last Admin: 11/02/17 19:30 Dose: 150 mls/hr Ertapenem 1 gm/ Sodium (Chloride) 50 mls @ 100 mls/hr IVPB Q24H [facility] Ibuprofen (Motrin Tab) 400 mg PO Q6H PRN PRN Reason: Headache Last Admin: 11/01/17 22:10 Dose: 400 mg Lactobacillus Acidophilus (Bacid Acidophilus) 1 cap PO BID [facility] Last Admin: 11/03/17 10:20 Dose: 1 cap Ondansetron HCl (Zofran Inj) 4 mg IVP Q4H PRN PRN Reason: Nausea/Vomiting - Labs Labs: 11/03/17 09:00 11/03/17 09:00 - Constitutional Appears: Well - Head Exam Head Exam: ATRAUMATIC, NORMAL INSPECTION, NORMOCEPHALIC - Eye Exam Eye Exam: EOMI, Normal appearance, PERRL Pupil Exam: NORMAL ACCOMODATION, PERRL - ENT Exam ENT Exam: Mucous Membranes Moist, Normal Exam - Neck Exam Neck Exam: Full ROM, Normal Inspection. absent: Lymphadenopathy - Respiratory Exam Respiratory Exam: Clear to Ausculation Bilateral, NORMAL BREATHING PATTERN. absent: Wheezes - Cardiovascular Exam Cardiovascular Exam: REGULAR RHYTHM, +S1, +S2. absent: Murmur - GI/Abdominal Exam GI & Abdominal Exam: Soft, Normal Bowel Sounds. absent: Tenderness - Extremities Exam Extremities Exam: Full ROM, Normal Capillary Refill, Normal Inspection. absent : Joint Swelling, Pedal Edema - Back Exam Back Exam: NORMAL INSPECTION - Neurological Exam Neurological Exam: Alert, Awake, CN II-XII Intact, Normal Gait, Oriented x3 - Psychiatric Exam Psychiatric exam: Normal Affect, Normal Mood - Skin Skin Exam: Dry, Intact, Normal Color, Warm Assessment and Plan - Assessment and Plan (Free Text) Assessment: (1) UTI due to extended-spectrum beta lactamase (ESBL) producing Escherichia coli Doxy/Merrem NS @ 100 Repeat blood cultures and urine cultures are negative HIV negative RPR negative FTA-ABS pending F/U GC workup Continue on Abx for total 10 days (09/15) - may substitute for Ertapenem 1g QD as outpatient. <Krystal Sauceda - Last Filed: 11/04/17 16:48> Objective - Vital Signs/Intake and Output Vital Signs (last 24 hours): Temp Pulse Resp BP Pulse Ox 98 F 59 L 20 102/70 100 11/04/17 06:00 11/04/17 06:00 11/04/17 06:00 11/04/17 06:00 11/03/17 14:00 Intake and Output: 11/04/17 11/04/17 06:59 18:59 Intake Total 600 420 Balance 600 420 - Medications Medications: Current Medications Doxycycline Hyclate (Doryx) 100 mg PO Q12 [facility] PRN Reason: Protocol Stop: 11/07/17 22:01 Last Admin: 11/04/17 09:21 Dose: 100 mg Heparin Sodium (Porcine) (Heparin) 5,000 units SC Q8 JOHN PRN Reason: Protocol Last Admin: 11/04/17 14:18 Dose: 5,000 units Sodium Chloride (Sodium Chloride 0.9%) 1,000 mls @ 150 mls/hr IV .Q6H40M [facility] Last Admin: 11/04/17 14:19 Dose: 150 mls/hr Ertapenem 1 gm/ Sodium (Chloride) 50 mls @ 100 mls/hr IVPB Q24H [facility] Last Admin: 11/04/17 09:49 Dose: 100 mls/hr Ibuprofen (Motrin Tab) 400 mg PO Q6H PRN PRN Reason: Headache Last Admin: 11/01/17 22:10 Dose: 400 mg Lactobacillus Acidophilus (Bacid Acidophilus) 1 cap PO BID [facility] Last Admin: 11/04/17 09:21 Dose: 1 cap Ondansetron HCl (Zofran Inj) 4 mg IVP Q4H PRN PRN Reason: Nausea/Vomiting - Labs Labs: 11/03/17 09:00 11/03/17 09:00 Attending/Attestation - Attestation I have personally seen and examined this patient.: Yes I have fully participated in the care of the patient.: Yes I have reviewed all pertinent clinical information, including history, physical exam and plan: Yes Notes (Text): 11/04/17 16:47 Medical record note made by the resident after discussion with my direction and input after the patient was personally seen and examined by me. I have reviewed the chart and agree that the record accurately reflects by personal performance of the history, physical exam, data review, and medical decision-making, in the course for the patient. I have also personally directed the plan of care. 32 years old female with Pyelonephrititis, Urine cultures grew ESBL on Meropenem as Per ID. Patient is afebrile, there is no costo vertebral tenderness. Awaiting for arrangement for out patient Invanz 1 gram daily to complete 10 days course of IV antibiotics as recommended by ID. Management plan was discussed in detail with patient. Education was provided.
[2017-11-03] MEDS: Sodium Chloride 0.9% 1,000 ML IV SCH (17:41)
--- NOTE | 2017-11-04 02:17 | PN ---
DATE: 11/03/2017 SUBJECTIVE: Patient is in bed, was seen earlier today. She is doing better. PHYSICAL EXAMINATION: VITAL SIGNS: Temperature is 97, blood pressure is 90/60, respiratory rate of 16. HEENT: Unremarkable. NECK: Supple. LUNGS: Have decreased breath sounds. HEART: Normal S1, S2. ABDOMEN: Soft. LABORATORY EXAMINATION: Noted. ASSESSMENT AND PLAN: This is a 32-year-old female seen earlier today with right-sided pyelonephritis with extended-spectrum beta-lactamase, Escherichia coli. Today is day number 6 of 10 days of meropenem. Can switch to ertapenem 1 g every 24 hours to complete 10 days of therapy as outpatient. We will follow with you. Jair Brown MD
[2017-11-04 07:58] VITALS: TEMP 98
[2017-11-04] MEDS: Lactobacillus Acidophilus 500 MU Cap PO SCH (09:21)
[2017-11-04] MEDS: Sodium Chloride 0.9% 1,000 ML IV SCH (14:19)
--- NOTE | 2017-11-04 17:03 | CP.PCM.DIS ---
<ThomasJacques - Last Filed: 11/04/17 16:57> Provider - Provider Date of Admission: 10/28/17 21:13 Attending physician: Krystal Sauceda MD Primary care physician: Rola Walton MD Consults: ID: [id number] Time Spent in preparation of Discharge (in minutes): 45 Hospital Course - Lab Results Lab Results: Most Recent Lab Values WBC 5.7 10^3/ul (4.5-11.0) D 11/03/17 09:00 RBC 3.84 10^6/uL (3.5-6.1) 11/03/17 09:00 Hgb 10.8 g/dL (12.0-16.0) L 11/03/17 09:00 Hct 33.5 % (36.0-48.0) L 11/03/17 09:00 MCV 87.2 fl (80.0-105.0) 11/03/17 09:00 MCH 28.1 pg (25.0-35.0) 11/03/17 09:00 MCHC 32.2 g/dl (31.0-37.0) 11/03/17 09:00 RDW 15.4 % (11.5-14.5) H 11/03/17 09:00 Plt Count 333 10^3/uL (120.0-450.0) 11/03/17 09:00 MPV 8.4 fl (7.0-11.0) 11/03/17 09:00 Gran % 34.8 % (50.0-68.0) L 11/03/17 09:00 Lymph % (Auto) 56.5 % (22.0-35.0) H 11/03/17 09:00 [place] % (Auto) 7.1 % (1.0-6.0) H 11/03/17 09:00 Eos % (Auto) 1.1 % (1.5-5.0) L 11/03/17 09:00 Baso % (Auto) 0.5 % (0.0-3.0) 11/03/17 09:00 Gran # 1.97 (1.4-6.5) 11/03/17 09:00 Lymph # (Auto) 3.2 (1.2-3.4) 11/03/17 09:00 [place] # (Auto) 0.4 (0.1-0.6) 11/03/17 09:00 Eos # (Auto) 0.1 (0.0-0.7) 11/03/17 09:00 Baso # (Auto) 0.03 K/mm3 (0.0-2.0) 11/03/17 09:00 Sodium 145 mmol/L (132-148) 11/03/17 09:00 Potassium 3.9 mmol/L (3.6-5.0) 11/03/17 09:00 Chloride 112 mmol/L (98-107) H 11/03/17 09:00 Carbon Dioxide 23 mmol/L (21-33) 11/03/17 09:00 Anion Gap 14 (10-20) 11/03/17 09:00 BUN 7 mg/dL (7-21) 11/03/17 09:00 Creatinine 0.5 mg/dl (0.7-1.2) L 11/03/17 09:00 Est GFR ( Amer) > 60 11/03/17 09:00 Est GFR (Non-Af Amer) > 60 11/03/17 09:00 Random Glucose 93 mg/dL (70-110) 11/03/17 09:00 Calcium 8.5 mg/dL (8.4-10.5) 11/03/17 09:00 Phosphorus 3.0 mg/dL (2.5-4.5) 11/03/17 09:00 Magnesium 1.9 mg/dL (1.7-2.2) 11/03/17 09:00 Total Bilirubin 0.2 mg/dL (0.2-1.3) 11/03/17 09:00 AST 66 U/L (14-36) H 11/03/17 09:00 ALT 75 U/L (7-56) H 11/03/17 09:00 Alkaline Phosphatase 67 U/L (38-126) 11/03/17 09:00 Total Protein 6.3 g/dL (5.8-8.3) 11/03/17 09:00 Albumin 3.4 g/dL (3.0-4.8) 11/03/17 09:00 Globulin 2.9 gm/dL 11/03/17 09:00 Albumin/Globulin Ratio 1.2 (1.1-1.8) 11/03/17 09:00 Urine Color Yellow (YELLOW) 10/28/17 19:10 Urine Appearance Sl cloudy (CLEAR) 10/28/17 19:10 Urine pH 6.0 (4.7-8.0) 10/28/17 19:10 Ur Specific Kake 1.025 (1.005-1.035) 10/28/17 19:10 Urine Protein Trace mg/dL (<30 mg/dL) H 10/28/17 19:10 Urine Glucose (UA) Negative mg/dL (NEGATIVE) 10/28/17 19:10 Urine Ketones Negative mg/dL (NEGATIVE) 10/28/17 19:10 Urine Blood Trace-lysed (NEGATIVE) H 10/28/17 19:10 Urine Nitrate Negative (NEGATIVE) 10/28/17 19:10 Urine Bilirubin Negative (NEGATIVE) 10/28/17 19:10 Urine Urobilinogen 0.2 E.U./dL (<1 E.U./dL) 10/28/17 19:10 Ur Leukocyte Esterase Small Terrell/uL (NEGATIVE) H 10/28/17 19:10 Urine RBC 0 - 2 /hpf (0-2) 10/28/17 19:10 Urine WBC 2 - 5 /hpf (0-6) 10/28/17 19:10 Ur Epithelial Cells 10 - 12 /hpf (0-5) 10/28/17 19:10 Urine Bacteria Few (NEG) 10/28/17 19:10 Urine HCG, Qual Negative (NEGATIVE) 10/28/17 19:10 RPR Nonreactive (NONREACTIVE) 10/30/17 07:30 T.pallidum Ab (FTA-ABS) Nonreactive (Nonreactive) 10/30/17 07:30 HIV 1&2 Ag/Ab, 4th Gen Nonreactive (Nonreactive) 10/30/17 07:30 - Hospital Course Hospital Course: On Admission: Mrs. Alek Charles is a 32 year old female with a past medical history significant for GERD and recurrent UTI's who presents for failed outpatient treatment of UTI with PO Doxycycline and Flagyl. Patient speaks primarily occitan and translation was provided by [employer]. Patient presented to the ED three days [employer] with complaints of RUQ/right sided flank pain for two days. She was diagnosed with UTI and sent home on the antiobiotics above. She came back to the ED tonight because her pain was not going away with antiobiotic treatment. It was confirmed that her UTI was caused by E. Coli sensitive to antibiotics that are primarily given IV. She reports that she has UTI's "all the time", most recently two months ago. She was vacationing in [facility] and was seen at the hospital there. She was diagnosed with UTI and was given antibiotics based on culture sensitivity. Patient could not recall the name of this antibiotic but reports that her symptoms were relieved however. She endorses one episode of N/V but denies fevers, chills, headache, chest pain, SOB , diarrhea, constipation, dysuria, hematuria, pyuria, vaginal discharge, skin changes/lesions, numbness/tingling/weakness of any extremity, or any new sexual partners. Hospital Course: Patient was treated with Merrem for ESBL pyelonephritis for 7 days as an inpatient. She was seen by ID who said it would be appropriate for the patient to be discharged with IV for 3 more days of outpatient [place] at [place] [facility]. She was given instructions to follow up at the infusion center. I spoke with the infusion nurses and they are aware. Case management has this approved by her insurance at this time. She was also instructed to follow up with her primary care doctor in one week as well as return to the ED if symptoms returned. Discharge Exam - Head Exam Head Exam: ATRAUMATIC, NORMAL INSPECTION, NORMOCEPHALIC - Eye Exam Eye Exam: EOMI, Normal appearance, PERRL Pupil Exam: NORMAL ACCOMODATION, PERRL - Respiratory Exam Respiratory Exam: Clear to PA & Lateral, NORMAL BREATHING PATTERN, UNREMARKABLE - Cardiovascular Exam Cardiovascular Exam: REGULAR RHYTHM - GI/Abdominal Exam GI & Abdominal Exam: Normal Bowel Sounds, Soft. absent: Distended, Tenderness - Extremities Exam Extremities exam: normal inspection - Back Exam Back exam: NORMAL INSPECTION. absent: CVA tenderness (L), CVA tenderness (R) - Neurological Exam Neurological exam: Alert, CN II-XII Intact, Normal Gait, Oriented x3, Reflexes Normal - Psychiatric Exam Psychiatric exam: Normal Affect, Normal Mood - Skin Skin Exam: Dry, Intact, Normal Color, Warm Discharge Plan - Discharge Medications Prescriptions: Ertapenem [Invanz] 1 gm IVPB Q24H 3 Days vial Lactobacillus Acidophilus [Bacid Acidophilus] 1 cap PO BID 30 Days cap - Follow Up Plan Condition: STABLE Disposition: HOME/ ROUTINE Instructions: Urinary Tract Infection in Women (DC), Dysuria (GEN) Additional Instructions: Vaya al centro de infusin todos los velasco em los prximos livan velasco para orellana tratamiento con antibiticos. La enfermera le proporcionar la informacin sobre still photographer llegar antes de que se vaya. Por favor, tome Probiotic dos horas despus del desayuno y 2 horas antes de la raffi em los prximos treinta d as. Por favor jamar un seguimiento con orellana mdico primario en 7-10 velasco. Por favor regrese al departamento de emergencias si rakesh sntomas regresan. Usted est siendo angel de todd con whintey lnea intravenosa para la infusion de orellana antibiitco por los prximos livan coronel. Favor no remover linea intravenosa y mantener limpia y seca. Evitar que la lnea intravenosa tenga contacto con agua. Referrals: Rola Walton [Primary Care Provider] - <Krystal Sauceda - Last Filed: 11/05/17 18:39> Provider - Provider Date of Admission: 10/28/17 21:13 Attending physician: Krytsal Sauceda MD Primary care physician: Rola Walton MD Hospital Course - Lab Results Lab Results: Most Recent Lab Values WBC 5.7 10^3/ul (4.5-11.0) D 11/03/17 09:00 RBC 3.84 10^6/uL (3.5-6.1) 11/03/17 09:00 Hgb 10.8 g/dL (12.0-16.0) L 11/03/17 09:00 Hct 33.5 % (36.0-48.0) L 11/03/17 09:00 MCV 87.2 fl (80.0-105.0) 11/03/17 09:00 MCH 28.1 pg (25.0-35.0) 11/03/17 09:00 MCHC 32.2 g/dl (31.0-37.0) 11/03/17 09:00 RDW 15.4 % (11.5-14.5) H 11/03/17 09:00 Plt Count 333 10^3/uL (120.0-450.0) 11/03/17 09:00 MPV 8.4 fl (7.0-11.0) 11/03/17 09:00 Gran % 34.8 % (50.0-68.0) L 11/03/17 09:00 Lymph % (Auto) 56.5 % (22.0-35.0) H 11/03/17 09:00 [place] % (Auto) 7.1 % (1.0-6.0) H 11/03/17 09:00 Eos % (Auto) 1.1 % (1.5-5.0) L 11/03/17 09:00 Baso % (Auto) 0.5 % (0.0-3.0) 11/03/17 09:00 Gran # 1.97 (1.4-6.5) 11/03/17 09:00 Lymph # (Auto) 3.2 (1.2-3.4) 11/03/17 09:00 [place] # (Auto) 0.4 (0.1-0.6) 11/03/17 09:00 Eos # (Auto) 0.1 (0.0-0.7) 11/03/17 09:00 Baso # (Auto) 0.03 K/mm3 (0.0-2.0) 11/03/17 09:00 Sodium 145 mmol/L (132-148) 11/03/17 09:00 Potassium 3.9 mmol/L (3.6-5.0) 11/03/17 09:00 Chloride 112 mmol/L (98-107) H 11/03/17 09:00 Carbon Dioxide 23 mmol/L (21-33) 11/03/17 09:00 Anion Gap 14 (10-20) 11/03/17 09:00 BUN 7 mg/dL (7-21) 11/03/17 09:00 Creatinine 0.5 mg/dl (0.7-1.2) L 11/03/17 09:00 Est GFR ( Amer) > 60 11/03/17 09:00 Est GFR (Non-Af Amer) > 60 11/03/17 09:00 Random Glucose 93 mg/dL (70-110) 11/03/17 09:00 Calcium 8.5 mg/dL (8.4-10.5) 11/03/17 09:00 Phosphorus 3.0 mg/dL (2.5-4.5) 11/03/17 09:00 Magnesium 1.9 mg/dL (1.7-2.2) 11/03/17 09:00 Total Bilirubin 0.2 mg/dL (0.2-1.3) 11/03/17 09:00 AST 66 U/L (14-36) H 11/03/17 09:00 ALT 75 U/L (7-56) H 11/03/17 09:00 Alkaline Phosphatase 67 U/L (38-126) 11/03/17 09:00 Total Protein 6.3 g/dL (5.8-8.3) 11/03/17 09:00 Albumin 3.4 g/dL (3.0-4.8) 11/03/17 09:00 Globulin 2.9 gm/dL 11/03/17 09:00 Albumin/Globulin Ratio 1.2 (1.1-1.8) 11/03/17 09:00 Urine Color Yellow (YELLOW) 10/28/17 19:10 Urine Appearance Sl cloudy (CLEAR) 10/28/17 19:10 Urine pH 6.0 (4.7-8.0) 10/28/17 19:10 Ur Specific [place] 1.025 (1.005-1.035) 10/28/17 19:10 Urine Protein Trace mg/dL (<30 mg/dL) H 10/28/17 19:10 Urine Glucose (UA) Negative mg/dL (NEGATIVE) 10/28/17 19:10 Urine Ketones Negative mg/dL (NEGATIVE) 10/28/17 19:10 Urine Blood Trace-lysed (NEGATIVE) H 10/28/17 19:10 Urine Nitrate Negative (NEGATIVE) 10/28/17 19:10 Urine Bilirubin Negative (NEGATIVE) 10/28/17 19:10 Urine Urobilinogen 0.2 E.U./dL (<1 E.U./dL) 10/28/17 19:10 Ur Leukocyte Esterase Small Terrell/uL (NEGATIVE) H 10/28/17 19:10 Urine RBC 0 - 2 /hpf (0-2) 10/28/17 19:10 Urine WBC 2 - 5 /hpf (0-6) 10/28/17 19:10 Ur Epithelial Cells 10 - 12 /hpf (0-5) 10/28/17 19:10 Urine Bacteria Few (NEG) 10/28/17 19:10 Urine HCG, Qual Negative (NEGATIVE) 10/28/17 19:10 RPR Nonreactive (NONREACTIVE) 10/30/17 07:30 T.pallidum Ab (FTA-ABS) Nonreactive (Nonreactive) 10/30/17 07:30 HIV 1&2 Ag/Ab, 4th Gen Nonreactive (Nonreactive) 10/30/17 07:30 Attending/Attestation - Attestation I have personally seen and examined this patient.: Yes I have fully participated in the care of the patient.: Yes I have reviewed all pertinent clinical information, including history, physical exam and plan: Yes Notes (Text): 11/05/17 18:36 Medical record note made by the resident after discussion with my direction and input after the patient was personally seen and examined by me. I have reviewed the chart and agree that the record accurately reflects by personal performance of the history, physical exam, data review, and medical decision-making, in the course for the patient. I have also personally directed the plan of care. 32 years old female with Pyelonephrititis, Urine cultures grew ESBL , was initially treated with Meropenem initiall, now switched to Invanz. Patient is afebrile, there is no costo vertebral tenderness. Arrangement has been made for out patient Invanz 1 gram daily to complete 10 days course of IV antibiotics as recommended by ID.Patient has been given instruction to go to infusion center every day for 3 more days to complete 10 days course of IV antibiotics as recommended by ID Management plan was discussed in detail with patient. Education was provided.
[2017-11-04 17:08] VITALS: BP 99/67; PULSE 75; RESP 18
== END 2017-11-04 18:21 | disposition home or self-care (01) | DRG 321 ==
LOC: ED 17:59 → ERH 21:13 → 5RNO 22:47
PROVIDERS: ADMIT Internal Medicine; ATTEND Internal Medicine
DX: N12 Tubulo-interstitial nephritis, not specified as acute or chronic (principal); B96.20 Unspecified Escherichia coli [E. coli] as the cause of diseases classified elsewhere; K21.9 Gastro-esophageal reflux disease without esophagitis; Z87.440 Personal history of urinary (tract) infections; Z90.49 Acquired absence of other specified parts of digestive tract; N73.9 Female pelvic inflammatory disease, unspecified; K29.70 Gastritis, unspecified, without bleeding